=== PATIENT | male | born 1955 | race Caucasian/White ===

== ENCOUNTER 2023-01-29 13:55 | Observation (INO) | payer MEDICARE, OTHER, SELFPAY ==
[2023-01-29] VITALS (19 sets, daily range): BP systolic 140–188; BP diastolic 73–101; PULSE 52–73; RESP 15–27; TEMP 36.3–36.8; O2SAT 94–99; BMI 39.9
--- NOTE | 2023-01-29 13:58 | DI.RAD.S_ITS ---
PROCEDURE: XR CHEST 1V INDICATIONS: chest pain TECHNIQUE: One view of the chest was acquired. COMPARISON: None. FINDINGS: Surgical changes and devices: None. Lungs and pleura: Lungs are clear. No pleural effusions or pneumothorax. Mediastinum: Mediastinal contours appear normal. Heart size is normal. Bones and chest wall: No suspicious bony lesions. Overlying soft tissues appear unremarkable. IMPRESSION: No acute cardiopulmonary process. Dictated by: Akin Mathis M.D. on 01/29/2023 at 14:44 Approved by: Akin Mathis M.D. on 01/29/2023 at 14:44
--- NOTE | 2023-01-29 14:34 | ED_ITS ---
HPI - Chest Pain General Chief Complaint: Chest Pain Stated Complaint: Chest pain, High BP Time Seen by Provider: 01/29/23 14:28 Source: patient Mode of arrival: Ambulatory History of Present Illness HPI narrative: Patient here with . Complains substernal chest pressure heaviness off and on for the past week. Seen at another emergency department yesterday, [place], EKG showed right bundle-branch block. Patient was discharged according to discharge papers had elevated troponin however but 2 sets were done and was recommended to be admitted if they had a bridge manager. Last stress test more than 6 years ago. Patient has history of high blood pressure. Has had dyspnea and fatigue in the past few months. No active chest discomfort at this time. Related Data Home Medications Medication Instructions Recorded Confirmed hydrochlorothiazide 25 mg tablet 25 mg PO DAILY 11/11/18 01/29/23 losartan 100 mg tablet 100 mg PO DAILY 11/11/18 01/29/23 trazodone 100 mg tablet 100 mg PO DAILY PRN insomnia 10/18/20 01/29/23 Previous Rx's Medication Instructions Recorded amlodipine 5 mg tablet 5 mg PO DAILY #30 tabs 01/30/23 Allergies Allergy/AdvReac Type Severity Reaction Status Date / Time amoxicillin Allergy Intermediate Hives Verified 01/29/23 18:17 Review of Systems Review of Systems Narrative: GENERAL: negative chills, fatigue, malaise, fever, sweats. HEENT: negative sinus pain, ear pain, sore throat RESPIRATORY: Positive dyspnea, negative cough CARDIOVASCULAR: Positive chest pain, negative palpitations GASTROINTESTINAL: negative nausea, vomiting, abdominal pain : negative dysuria, frequency, hematuria MUSCULOSKELETAL: negative muscle or bony pain SKIN: negative rash, skin lesions NEUROLOGIC: negative weakness, numbness ROS Unobtainable: All systems reviewed & are unremarkable except as noted in HPI and below Patient History Medical History Hypertension Morbid obesity with BMI of 40.0-44.9, adult Obstructive sleep apnea of adult Primary insomnia Snoring Social History marital status: household members: spouse 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 history: retired after 37 years with [employer] 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 EYES: Pupils equal round ENT: Mucous membranes moist. NECK: Trachea midline. CARDIOVASCULAR: Regular rate and rhythm without murmurs RESPIRATORY: Clear to auscultation. Breath sounds equal bilaterally. No wheezes, rales, or rhonchi. GASTROINTESTINAL: Abdomen soft, non-tender EXTREMITIES: No gross deformities. BACK: No flank tenderness. NEURO: AOx4. SKIN: Warm and dry PSYCH: Not anxious, is cooperative Initial Vital Signs Initial Vital Signs: Vital Signs Temperature 97.4 F L 01/29/23 14:00 Pulse Rate 60 01/29/23 14:00 Respiratory Rate 19 01/29/23 14:00 Blood Pressure 184/92 H 01/29/23 14:00 Pulse Oximetry 99 01/29/23 14:00 Oxygen Delivery Method Room Air 01/29/23 14:00 Scores HEART Score Heart Score history: Moderately Suspicious Heart Score EKG: Non-Specific repolarization disturbance Heart Score Age: > or = 65 years old Heart Score risk factors: > 3 risk factors or hx of atherosclerotic disease Heart Score troponin: < or = to normal limit Heart Score Total: 6 Course Orders Ordered: Discontinued Medications Acetaminophen (Acetaminophen 325 Mg Tablet) 650 mg PO Q6H PRN PRN Reason: Fever/Mild Pain (1-3) Al Hydrox/Mg Hydrox/Simethicone (Mag Hydrox/Alum/Simeth 30 Ml Udc) 30 ml PO Q6HR PRN PRN Reason: Dyspepsia Aspirin (Aspirin 81 Mg Chew Tab) 324 mg PO NOW ONE Stop: 01/29/23 13:59 Last Admin: 01/29/23 14:51 Dose: Not Given Documented By: RLS Calcium Carbonate (Calcium Carbonate 500 Mg Tab) 1,000 mg PO Q4HR PRN PRN Reason: Dyspepsia Hydrochlorothiazide (Hydrochlorothiazide 25 Mg Tablet) 25 mg PO DAILY [facility] Last Admin: 01/30/23 13:55 Dose: 25 mg Documented By: CEW Dextrose/Sodium Chloride (Dextrose 5%-0.45% Ns) 1,000 mls @ 100 mls/hr IV CONT [facility] Last Admin: 01/29/23 18:51 Dose: 100 mls/hr Documented By: CLL Losartan Potassium (Losartan 50 Mg Tablet) 100 mg PO DAILY [facility] Last Admin: 01/30/23 13:54 Dose: 100 mg Documented By: AVA Naloxone HCl (Naloxone 0.4 Mg/Ml Vial) 0.2 mg IV Q2MIN PRN PRN Reason: Opiate Reversal Nitroglycerin (Nitroglycerin Oint 1 Inch/Gm Oint...G.) 1 inch TOP NOW ONE Stop: 01/29/23 14:35 Last Admin: 01/29/23 14:53 Dose: 1 inch Documented By: MARK Ondansetron HCl (Ondansetron 4 Mg Odt) 4 mg PO Q8HR PRN PRN Reason: Nausea And Vomiting Pantoprazole Sodium (Pantoprazole Dr 20 Mg Tablet) 20 mg PO 0600 [facility] Last Admin: 01/30/23 05:06 Dose: 20 mg Documented By: Vital Signs Vital signs: Vital Signs - 8 hr 01/29/23 14:00 01/29/23 14:53 01/29/23 14:10 Temperature 97.4 F L Pulse Rate 60 54 L 73 Respiratory Rate 19 27 H Blood Pressure 184/92 H 167/90 H Pulse Oximetry 99 Oxygen Delivery Method Room Air 01/29/23 14:17 01/29/23 14:17 01/29/23 14:30 Temperature Pulse Rate 58 L 59 L Respiratory Rate 20 23 Blood Pressure 164/92 H Pulse Oximetry 97 98 Oxygen Delivery Method 01/29/23 14:50 01/29/23 14:50 01/29/23 15:00 Temperature Pulse Rate 56 L Respiratory Rate 21 Blood Pressure 167/90 H 149/85 H Pulse Oximetry 98 Oxygen Delivery Method 01/29/23 15:00 01/29/23 15:30 01/29/23 15:30 Temperature Pulse Rate 52 L 54 L Respiratory Rate 15 20 Blood Pressure 161/81 H Pulse Oximetry 97 98 Oxygen Delivery Method Nasal Cannula 01/29/23 16:00 01/29/23 16:01 01/29/23 16:01 Temperature Pulse Rate 52 L 54 L Respiratory Rate 19 18 Blood Pressure 140/73 Pulse Oximetry 97 96 Oxygen Delivery Method 01/29/23 16:30 01/29/23 16:32 01/29/23 16:32 Temperature Pulse Rate 56 L 57 L Respiratory Rate 22 21 Blood Pressure 188/101 H Pulse Oximetry 96 Oxygen Delivery Method MDM - Chest Pain Lab Data 01/29/23 18:25 01/29/23 18:25 Labs: Lab Results 01/29/23 01/29/23 01/29/23 Range/Units 14:30 14:30 14:30 WBC 7.5 (4.5-11.0) X10^3/uL RBC 4.78 (4.5-5.9) X10^6/uL Hgb 14.5 (13.5-17.5) g/dL Hct 42.1 (41-53) % MCV 88.1 (80-100) fL MCH 30.2 (26-34) PG MCHC 34.3 (30-36) % RDW 13.4 (11.6-14.8) % Plt Count 145 L (150-400) X10^3/uL Neut % (Auto) 66.9 (50-75) % Lymph % (Auto) 22.5 L (25-40) % [place] % (Auto) 8.0 (3-14) % Eos % (Auto) 1.8 L (2-4) % Baso % (Auto) 0.8 (0-2) % Neut # (Auto) 5000 (5361-7081) /uL Lymph # (Auto) 1700 (3469-6921) /uL [place] # (Auto) 600 (0-900) /uL Eos # (Auto) 100 (0-450) /uL Baso # (Auto) 100 (0-100) /uL PT 12.3 (10.1-12.7) SECONDS INR 1.1 (0.9-1.3) APTT 33 (26-36) SECONDS Sodium 139 (137-145) mmol/L Potassium 3.7 (3.4-5.1) mmol/L Chloride 105 (98-107) mmol/L Carbon Dioxide 30 (22-32) mmol/L BUN 15 (9-20) mg/dL Creatinine 0.73 (0.66-1.25) mg/dL Estimated GFR > 60 (>60) mL/min BUN/Creatinine Ratio 20.5 (6-22) Glucose 92 (80-110) mg/dL Calcium 9.3 (8.4-10.2) mg/dL Magnesium 2.0 (1.6-2.3) mg/dL Total Bilirubin 1.4 H (0.2-1.3) mg/dL AST 34 (17-59) IU/L ALT 34 (<50) IU/L Alkaline Phosphatase 75 (38-126) U/L Total Creatine Kinase 112 (55-170) U/L CK-MB (CK-2) 1.44 (<2.37) ng/mL CK-MB (CK-2) Rel Index 1.3 L (1.5-5.0) % Troponin I 0.017 (0.01-0.034) ng/mL Total Protein 7.0 (6.3-8.2) g/dL Albumin 4.0 (3.5-5.0) g/dL Globulin 3.0 (1.7-4.1) g/dL Albumin/Globulin Ratio 1.3 (1.0-2.8) Lipase 52 (23-300) U/L SARS-CoV-2 (PCR) (Negative) 01/29/23 01/29/23 Range/Units 15:20 16:30 WBC (4.5-11.0) X10^3/uL RBC (4.5-5.9) X10^6/uL Hgb (13.5-17.5) g/dL Hct (41-53) % MCV (80-100) fL MCH (26-34) PG MCHC (30-36) % RDW (11.6-14.8) % Plt Count (150-400) X10^3/uL Neut % (Auto) (50-75) % Lymph % (Auto) (25-40) % [place] % (Auto) (3-14) % Eos % (Auto) (2-4) % Baso % (Auto) (0-2) % Neut # (Auto) (4361-9024) /uL Lymph # (Auto) (7048-4573) /uL [place] # (Auto) (0-900) /uL Eos # (Auto) (0-450) /uL Baso # (Auto) (0-100) /uL PT (10.1-12.7) SECONDS INR (0.9-1.3) APTT (26-36) SECONDS Sodium (137-145) mmol/L Potassium (3.4-5.1) mmol/L Chloride (98-107) mmol/L Carbon Dioxide (22-32) mmol/L BUN (9-20) mg/dL Creatinine (0.66-1.25) mg/dL Estimated GFR (>60) mL/min BUN/Creatinine Ratio (6-22) Glucose (80-110) mg/dL Calcium (8.4-10.2) mg/dL Magnesium (1.6-2.3) mg/dL Total Bilirubin (0.2-1.3) mg/dL AST (17-59) IU/L ALT (<50) IU/L Alkaline Phosphatase (38-126) U/L Total Creatine Kinase (55-170) U/L CK-MB (CK-2) (<2.37) ng/mL CK-MB (CK-2) Rel Index (1.5-5.0) % Troponin I 0.014 (0.01-0.034) ng/mL Total Protein (6.3-8.2) g/dL Albumin (3.5-5.0) g/dL Globulin (1.7-4.1) g/dL Albumin/Globulin Ratio (1.0-2.8) Lipase (23-300) U/L SARS-CoV-2 (PCR) Negative (Negative) Imaging Data Chest x-ray: Radiologist's Impression: PROCEDURE:? XR CHEST 1V ? INDICATIONS:? chest pain ? TECHNIQUE:? One view of the chest was acquired.? ? COMPARISON:? None. ? FINDINGS:? ? Surgical changes and devices:? None.? ? Lungs and pleura:? Lungs are clear.? No pleural effusions or pneumothorax.? ? Mediastinum:? Mediastinal contours appear normal.? Heart size is normal.? ? Bones and chest wall:? No suspicious bony lesions.? Overlying soft tissues a ppear unremarkable.? ? IMPRESSION:? No acute cardiopulmonary process. ? ? ? Dictated by: Akin Mathis M.D. on 01/29/2023 at 14:44 ? ? Approved by: Akin Mathis M.D. on 01/29/2023 at 14:44 ? MDM Narrative Medical decision making narrative: Patient here with . Complains substernal chest pressure heaviness off and on for the past week. Seen at another emergency department yesterday, [place], EKG showed right bundle-branch block. Patient was discharged according to discharge papers had elevated troponin however but 2 sets were done and was recommended to be admitted if they had a bridge manager. Last stress test more than 6 years ago. Patient has history of high blood pressure. Has had dyspnea and fatigue in the past few months. No active chest discomfort at this time. After history and exam CBC CMP troponin EKG chest x-ray nitro paste aspirin ordered [facility] CC: Chest pain Complicating co-morbidities: Family history of heart disease/hypertension Data collected from: Patient and Medical records reviewed: No recent visits here for chest pain Differential considered: Includes but not limited to STEMI non-STEMI stable angina unstable angina pulmonary embolism Exam documented above, pertinent findings include: Nontender chest Lab Test results independently reviewed as above. Pertinent findings: WBCs 7.5 hemoglobin 14, troponin 0.017, repeat troponin 0.014 Independently reviewed EKG as above normal sinus rhythm right bundle-branch block, rate [address] elevation or depression, repeat EKG at 1626 sinus bradycardia rate 55 right bundle-branch block Imaging studies independently reviewed: no acute process Consultations: Spoke with Dr. Garcia, hospitalist, will admit Treatments: Aspirin nitro paste Re-evaluations: 5:00 p.m.. Reviewed results with patient. At this time reassuring. 167/94 blood pressure has improved. Chest pain has improved. Discussion: Appropriate for admission for stress test. Patient has had worsening chest pressure/episodic chest discomfort for the past 2 days. Diagnosis: Chest pain Discharge Plan Departure Patient Disposition: Admitted as Observation Clinical Impression: Chest pain Admit Date/Time: 01/29/23 17:17 Admit Provider: Orlando Garcia
[2023-01-29 14:40] LABS: Add Manual Diff / Slide Review NO; Basophils Absolute Auto 100 /uL (0-100); Basophils Percent Auto 0.8 % (0-2); Eosinophils Absolute Auto 100 /uL (0-450); Eosinophils Percent Auto 1.8 % (2-4); Hematocrit 42.1 % (41-53); Hemoglobin 14.5 g/dL (13.5-17.5); Lymphocytes Absolute Auto 1700 /uL (1100-4500); Lymphocytes Percent Auto 22.5 % (25-40); Mean Corpuscular HGB Conc 34.3 % (30-36); Mean Corpuscular Hemoglobin 30.2 PG (26-34); Mean Corpuscular Volume 88.1 fL (80-100); Monocytes Absolute Auto 600 /uL (0-900); Neutrophils Absolute Auto 5000 /uL (1500-7000); Neutrophils Percent Auto 66.9 % (50-75); Platelet Count 145 X10^3/uL (150-400); Red Blood Cell Count 4.78 X10^6/uL (4.5-5.9); Red Cell Distribution Width 13.4 % (11.6-14.8); White Blood Cell Count 7.5 X10^3/uL (4.5-11.0)
[2023-01-29 14:43] LABS: INR 1.1 (0.9-1.3); Prothrombin Time 12.3 SECONDS (10.1-12.7)
[2023-01-29 14:46] LABS: PTT Partial Thromboplastin Tim 33 SECONDS (26-36)
[2023-01-29 14:50] LABS: Alanine Aminotransferase 34 IU/L (<50); Albumin Globulin Ratio 1.3 (1.0-2.8); Alkaline Phosphatase 75 U/L (38-126); Aspartate Aminotransferase 34 IU/L (17-59); BUN Creatinine Ratio 20.5 (6-22); Bilirubin Total 1.4 mg/dL (0.2-1.3); Blood Urea Nitrogen 15 mg/dL (9-20); Calcium 9.3 mg/dL (8.4-10.2); Carbon Dioxide 30 mmol/L (22-32); Chloride 105 mmol/L (98-107); Creatine Kinase 112 U/L (55-170); Estimated Glomerular Filt Rate > 60 mL/min (>60); Glucose 92 mg/dL (80-110); HEMOLYSIS < 15 (0-50); Lipase 52 U/L (23-300); Potassium 3.7 mmol/L (3.4-5.1); Sodium 139 mmol/L (137-145)
[2023-01-29] MEDS: NITROGLYCERIN OINT 1 INCH/GM OINT...G. TOP (14:53)
[2023-01-29 15:02] LABS: Troponin I 0.017 ng/mL (0.01-0.034)
[2023-01-29 15:06] LABS: CKMB % Relative Index 1.3 % (1.5-5.0); Creatine Kinase MB 1.44 ng/mL (<2.37)
[2023-01-29 15:44] LABS: COVID19 -Nasal RAPID Negative (Negative)
[2023-01-29 17:00] LABS: Troponin I 0.014 ng/mL (0.01-0.034)
--- NOTE | 2023-01-29 17:24 | DI.NM.S_ITS ---
PROCEDURE: NM EXERCISE TREADMILL NON NUC COMPARISON: None INDICATIONS: Chest pain FINDINGS: Rest ECG sinus rhythm, RBBB. Resting blood pressure 220/100. James protocol 5:04, maximum heart rate 134 bpm (87% peak predicted), maximum blood pressure 230/98, 7.0 METS, TALAT +30%. Stress ECG sinus tachycardia, RBBB, artifact, no obvious ST changes, frequent PVCs. The patient complained of mild substernal chest discomfort. IMPRESSION: Intermediate risk test. No obvious exercise-induced ST segment changes however limited due to artifact and baseline RBBB. Frequent PVCs noted throughout exercise. Uncontrolled blood pressure. Accelerated heart rate response. Reduced exercise capacity. Consider pharmacologic nuclear stress testing to further assess once blood pressure is controlled. Dictated by: Aarti Perez D.O. on 01/30/2023 at 12:38 Approved by: Aarti Perez D.O. on 01/30/2023 at 12:50
--- NOTE | 2023-01-29 17:26 | P.HP_ITS ---
History of Present Illness History of Present Illness Date Patient Seen: 01/29/23 Time Patient Seen: 19:08 Chief complaint: Chest pain, High BP Narrative: The patient is a 67-year-old male with history of hypertension who presents with chest pressure. Pressure intermittently for the last 3 days. This has not necessarily been with exertion are in the mid chest without radiation to he has had some clamminess with this but denies any associated nausea, diaphoresis, or dyspnea. The patient has no history of exertional symptoms of dyspnea or chest pain. He has been taking blood pressure medication denies any issues with blood pressure control. He does not smoke cigarettes and denies a family for [place]. emergency department he would a nonacute electrocardiogram and negative troponin. The patient notes he was seen at would be Emergency Department evening and left at 4:00 a.m. with a stent because of recurrent symptoms this late morning while at work he elected to come to this hospital as he knew that there was more sophisticated cardiology testing available. He denies pedal edema, orthopnea she denies recent URI symptoms including rhinorrhea, or cough. 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 Meds Home Medications and Allergies Home Medications Medication Instructions Recorded Confirmed Type hydrochlorothiazide 25 mg tablet 25 mg PO DAILY 11/11/18 01/29/23 History losartan 100 mg tablet 100 mg PO DAILY 11/11/18 01/29/23 History trazodone 100 mg tablet 100 mg PO DAILY PRN insomnia 10/18/20 01/29/23 History Allergies Allergy/AdvReac Type Severity Reaction Status Date / Time amoxicillin Allergy Intermediate Hives Verified 01/29/23 18:17 Review of Systems Review of Systems Narrative: He denies recent nausea, vomiting or diarrhea. No pain or dyspeptic symptoms. All else reviewed and otherwise negative. Exam Vital Signs (past 8 hours): - 01/29/23 14:00 01/29/23 14:53 01/29/23 14:10 Temperature 97.4 F L Pulse Rate 60 54 L 73 Respiratory Rate 19 27 H Blood Pressure 184/92 H 167/90 H Pulse Oximetry 99 Oxygen Delivery Method Room Air 01/29/23 14:17 01/29/23 14:17 01/29/23 14:30 Temperature Pulse Rate 58 L 59 L Respiratory Rate 20 23 Blood Pressure 164/92 H Pulse Oximetry 97 98 Oxygen Delivery Method 01/29/23 14:50 01/29/23 14:50 01/29/23 15:00 Temperature Pulse Rate 56 L Respiratory Rate 21 Blood Pressure 167/90 H 149/85 H Pulse Oximetry 98 Oxygen Delivery Method 01/29/23 15:00 01/29/23 15:30 01/29/23 15:30 Temperature Pulse Rate 52 L 54 L Respiratory Rate 15 20 Blood Pressure 161/81 H Pulse Oximetry 97 98 Oxygen Delivery Method Nasal Cannula 01/29/23 16:00 01/29/23 16:01 01/29/23 16:01 Temperature Pulse Rate 52 L 54 L Respiratory Rate 19 18 Blood Pressure 140/73 Pulse Oximetry 97 96 Oxygen Delivery Method 01/29/23 16:30 01/29/23 16:32 01/29/23 16:32 Temperature Pulse Rate 56 L 57 L Respiratory Rate 22 21 Blood Pressure 188/101 H Pulse Oximetry 96 Oxygen Delivery Method 01/29/23 17:00 01/29/23 17:01 01/29/23 17:01 Temperature Pulse Rate 56 L 56 L Respiratory Rate 20 22 Blood Pressure 167/94 H Pulse Oximetry 95 94 Oxygen Delivery Method Room Air Oxygen Delivery Method Room Air Narrative Exam Narrative: He is alert and oriented x3, relatively calm. He has normal judgment and regular speech. Head is atraumatic. Eyes are notable for symmetric pupils and anicteric sclera. Neck is supple with normal range of motion, normal thyroid. No adenopathy. Lungs are clear to auscultation with normal rate and effort. Heart is regular in rate and rhythm, with out murmur. Abdomen is soft, nondistended. No focal tenderness, guarding or rebound. Extremities are free of edema with good pedal pulses. Skin is free of rash, or lesions. Muscles with normal tone, joints are negative for deformity. Neurologically patient has normal cranial nerves and normal motor strength in all extremities. Objective ECG Impression: Sinus rhythm without acute changes. Imaging Chest x-ray: My impression: No acute changes noted. Labs 01/29/23 18:25 01/29/23 18:25 Labs: Laboratory Results - last 24 hr 01/29/23 01/29/23 01/29/23 14:30 14:30 14:30 WBC 7.5 RBC 4.78 Hgb 14.5 Hct 42.1 MCV 88.1 MCH 30.2 MCHC 34.3 RDW 13.4 Plt Count 145 L Neut % (Auto) 66.9 Lymph % (Auto) 22.5 L [place] % (Auto) 8.0 Eos % (Auto) 1.8 L Baso % (Auto) 0.8 Neut # (Auto) 5000 Lymph # (Auto) 1700 [place] # (Auto) 600 Eos # (Auto) 100 Baso # (Auto) 100 PT 12.3 INR 1.1 APTT 33 Sodium 139 Potassium 3.7 Chloride 105 Carbon Dioxide 30 BUN 15 Creatinine 0.73 Estimated GFR > 60 BUN/Creatinine Ratio 20.5 Glucose 92 Calcium 9.3 Magnesium 2.0 Total Bilirubin 1.4 H AST 34 ALT 34 Alkaline Phosphatase 75 Total Creatine Kinase 112 CK-MB (CK-2) 1.44 CK-MB (CK-2) Rel Index 1.3 L Troponin I 0.017 Total Protein 7.0 Albumin 4.0 Globulin 3.0 Albumin/Globulin Ratio 1.3 Lipase 52 SARS-CoV-2 (PCR) 01/29/23 01/29/23 15:20 16:30 WBC RBC Hgb Hct MCV MCH MCHC RDW Plt Count Neut % (Auto) Lymph % (Auto) [place] % (Auto) Eos % (Auto) Baso % (Auto) Neut # (Auto) Lymph # (Auto) [place] # (Auto) Eos # (Auto) Baso # (Auto) PT INR APTT Sodium Potassium Chloride Carbon Dioxide BUN Creatinine Estimated GFR BUN/Creatinine Ratio Glucose Calcium Magnesium Total Bilirubin AST ALT Alkaline Phosphatase Total Creatine Kinase CK-MB (CK-2) CK-MB (CK-2) Rel Index Troponin I 0.014 Total Protein Albumin Globulin Albumin/Globulin Ratio Lipase SARS-CoV-2 (PCR) Negative Assessment & Plan Assessment & Plan narrative: 1. Atypical Chest pain, present on admission and active. - the plan is serial troponins, NPO midnight and stress test in the morning. 2. Essential hypertension, present on admission and active. - Resume usual medications including hydrochlorothiazide and losartan. Patient is full resuscitation is observation patient with expected length of stay of 1 midnight. Time Spent With Patient Critical Care time: 35 minutes spent
--- NOTE | 2023-01-29 18:37 | PC.NURSE ---
Patient admitted for chest pain, tele is placed. His daughter is in the room and he denies chest pain at this time.
[2023-01-29 18:40] LABS: Add Manual Diff / Slide Review NO; Basophils Absolute Auto 0 /uL (0-100); Basophils Percent Auto 0.7 % (0-2); Eosinophils Absolute Auto 100 /uL (0-450); Eosinophils Percent Auto 1.9 % (2-4); Hematocrit 41.6 % (41-53); Hemoglobin 14.3 g/dL (13.5-17.5); Lymphocytes Absolute Auto 1700 /uL (1100-4500); Lymphocytes Percent Auto 23.1 % (25-40); Mean Corpuscular HGB Conc 34.4 % (30-36); Mean Corpuscular Hemoglobin 30.1 PG (26-34); Mean Corpuscular Volume 87.4 fL (80-100); Monocytes Absolute Auto 500 /uL (0-900); Monocytes Percent Auto 7.1 % (3-14); Neutrophils Absolute Auto 5000 /uL (1500-7000); Neutrophils Percent Auto 67.2 % (50-75); Platelet Count 144 X10^3/uL (150-400); Red Blood Cell Count 4.76 X10^6/uL (4.5-5.9); Red Cell Distribution Width 13.8 % (11.6-14.8); White Blood Cell Count 7.4 X10^3/uL (4.5-11.0)
[2023-01-29 18:48] LABS: BUN Creatinine Ratio 23.8 (6-22); Blood Urea Nitrogen 15 mg/dL (9-20); Calcium 9.1 mg/dL (8.4-10.2); Carbon Dioxide 29 mmol/L (22-32); Chloride 104 mmol/L (98-107); Estimated Glomerular Filt Rate > 60 mL/min (>60); Glucose 103 mg/dL (80-110); HEMOLYSIS < 15 (0-50); Potassium 3.6 mmol/L (3.4-5.1); Sodium 139 mmol/L (137-145)
[2023-01-29] MEDS: DEXTROSE 5%-0.45% NS 1,000 ML 100 ML IV (18:51)
[2023-01-29 19:01] LABS: Troponin I 0.019 ng/mL (0.01-0.034)
[2023-01-30 02:00] VITALS: BP 120/71; PULSE 50; O2SAT 98
[2023-01-30] MEDS: PANTOPRAZOLE DR 20 MG TABLET PO (05:06)
[2023-01-30 06:00] VITALS: BP 136/82; PULSE 50; RESP 15; TEMP 35.9; O2SAT 97
[2023-01-30 09:53] VITALS: BP 154/87; PULSE 54; RESP 16; TEMP 36.1; O2SAT 98
--- NOTE | 2023-01-30 12:04 | CM.DANOTE ---
Discharge Planning/Care Management CM Discharge Assessment Start: 01/30/23 11:50 Freq: Status: Active Protocol: Document 01/30/23 11:50 KATHRINE (Rec: 01/30/23 12:04 KATHRINE [id number]) Discharge Planning Assessment Assigned Agricultural Lender KASSIDY Whitmore DPOA/Assigned Designee Name Aria De La Rosa Contact Information [phone] Advance Directives? 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 Yes Barriers to Discharge No Comment 67-year-old male with history of hypertension who presents with chest pressure. Dr Garcia anticipates discharge home w/spouse after stress test Patient back to functional baseline today, indp in room. No needs identified from this CM team. Close outpatient follow up recommended Discharge Plan Home Transportation Arrangement Family Referrals Initiated None needed
[2023-01-30] MEDS: LOSARTAN 50 MG TABLET 100 MG PO (13:54)
[2023-01-30] MEDS: hydroCHLOROthiazide 25 MG TABLET PO (13:55)
--- NOTE | 2023-01-30 14:28 | P.DS_ITS ---
History of Present Illness History of Present Illness Date Patient Seen: 01/29/23 Time Patient Seen: 19:08 Chief complaint: Chest pain, High BP Narrative: The patient is a 67-year-old male with history of hypertension who presents with chest pressure. Pressure intermittently for the last 3 days. This has not necessarily been with exertion are in the mid chest without radiation to he has had some clamminess with this but denies any associated nausea, diaphoresis, or dyspnea. The patient has no history of exertional symptoms of dyspnea or chest pain. He has been taking blood pressure medication denies any issues with blood pressure control. He does not smoke cigarettes and denies a family for HI. emergency department he would a nonacute electrocardiogram and negative troponin. The patient notes he was seen at would be Emergency Department evening and left at 4:00 a.m. with a stent because of recurrent symptoms this late morning while at work he elected to come to this hospital as he knew that there was more sophisticated cardiology testing available. He denies pedal edema, orthopnea she denies recent URI symptoms including rhinorrhea, or cough. Discharge Providers Provider Date of admission: 01/29/23 17:17 Discharge Date: 01/30/23 Primary care physician: Sumanth Pham MD Consults: None Discharge provider: Orlando Garcia MD Summary Hospital Course Discharge Diagnosis: Atypical chest pain with intermediate exercise stress test, present on admission and improved. Uncontrolled blood pressure, present on admission and active Obesity class 2, present on admission and active Hospital Course: The patient was admitted with atypical chest acute electrocardiogram. Trended troponins were negative. The patient was not a candidate for stress test given BMI so we elected to do a exercise discussion with Cardiology. S was read as intermediate risk. This was based on patient's difficulty with exercise as well as PVCs and uncontrolled blood pressure. There was an assessment of reduced size capacity. There are no obvious ST were to consider pharmacologic nuclear stress test after blood pressure is better controlled. Discussed blood pressure control and weight loss with the patient. He will be next week and in the meantime we will add amlodipine 5 mg daily to his regimen. Status at Discharge Cognitive/behavioral status at discharge: oriented Functional status at discharge: independent ambulation Overall status at discharge: patient is back to baseline Time Spent with Patient Time spent: Greater than 30 minutes Exam Vital Signs (past 8 hours): - 01/30/23 09:53 Temperature 97.0 F L Pulse Rate 54 L Respiratory Rate 16 Blood Pressure 154/87 H Pulse Oximetry 98 Oxygen Flow Rate 0 Oxygen Delivery Method Room Air Oxygen Flow Rate 0 Narrative Exam Narrative: He is alert and oriented x3, relatively calm. He has normal judgment and regular speech. Head is atraumatic. Eyes are notable for symmetric pupils and anicteric sclera. Neck is supple with normal range of motion, normal thyroid. No adenopathy. Lungs are clear to auscultation with normal rate and effort. Heart is regular in rate and rhythm, with out murmur. Abdomen is soft, nondistended. No focal tenderness, guarding or rebound. Extremities are free of edema with good pedal pulses. Skin is free of rash, or lesions. Muscles with normal tone, joints are negative for deformity. Neurologically patient has normal cranial nerves and normal motor strength in all extremities. Objective ECG Impression: Normal sinus rhythm no acute changes. Imaging Chest x-ray: My impression: No acute changes. Radiologist's impression: No acute changes Labs 01/29/23 18:25 01/29/23 18:25 Labs: Laboratory Results - last 24 hr 01/29/23 01/29/23 01/29/23 14:30 14:30 14:30 WBC 7.5 RBC 4.78 Hgb 14.5 Hct 42.1 MCV 88.1 MCH 30.2 MCHC 34.3 RDW 13.4 Plt Count 145 L Neut % (Auto) 66.9 Lymph % (Auto) 22.5 L [place] % (Auto) 8.0 Eos % (Auto) 1.8 L Baso % (Auto) 0.8 Neut # (Auto) 5000 Lymph # (Auto) 1700 [place] # (Auto) 600 Eos # (Auto) 100 Baso # (Auto) 100 PT 12.3 INR 1.1 APTT 33 Sodium 139 Potassium 3.7 Chloride 105 Carbon Dioxide 30 BUN 15 Creatinine 0.73 Estimated GFR > 60 BUN/Creatinine Ratio 20.5 Glucose 92 Calcium 9.3 Magnesium 2.0 Total Bilirubin 1.4 H AST 34 ALT 34 Alkaline Phosphatase 75 Total Creatine Kinase 112 CK-MB (CK-2) 1.44 CK-MB (CK-2) Rel Index 1.3 L Troponin I 0.017 Total Protein 7.0 Albumin 4.0 Globulin 3.0 Albumin/Globulin Ratio 1.3 Lipase 52 SARS-CoV-2 (PCR) 01/29/23 01/29/23 01/29/23 15:20 16:30 18:25 WBC 7.4 RBC 4.76 Hgb 14.3 Hct 41.6 MCV 87.4 MCH 30.1 MCHC 34.4 RDW 13.8 Plt Count 144 L Neut % (Auto) 67.2 Lymph % (Auto) 23.1 L [place] % (Auto) 7.1 Eos % (Auto) 1.9 L Baso % (Auto) 0.7 Neut # (Auto) 5000 Lymph # (Auto) 1700 [place] # (Auto) 500 Eos # (Auto) 100 Baso # (Auto) 0 PT INR APTT Sodium Potassium Chloride Carbon Dioxide BUN Creatinine Estimated GFR BUN/Creatinine Ratio Glucose Calcium Magnesium Total Bilirubin AST ALT Alkaline Phosphatase Total Creatine Kinase CK-MB (CK-2) CK-MB (CK-2) Rel Index Troponin I 0.014 Total Protein Albumin Globulin Albumin/Globulin Ratio Lipase SARS-CoV-2 (PCR) Negative 01/29/23 01/29/23 18:25 18:25 WBC RBC Hgb Hct MCV MCH MCHC RDW Plt Count Neut % (Auto) Lymph % (Auto) [place] % (Auto) Eos % (Auto) Baso % (Auto) Neut # (Auto) Lymph # (Auto) [place] # (Auto) Eos # (Auto) Baso # (Auto) PT INR APTT Sodium 139 Potassium 3.6 Chloride 104 Carbon Dioxide 29 BUN 15 Creatinine 0.63 L Estimated GFR > 60 BUN/Creatinine Ratio 23.8 H Glucose 103 Calcium 9.1 Magnesium Total Bilirubin AST ALT Alkaline Phosphatase Total Creatine Kinase CK-MB (CK-2) CK-MB (CK-2) Rel Index Troponin I 0.019 Total Protein Albumin Globulin Albumin/Globulin Ratio Lipase SARS-CoV-2 (PCR) [facility] Medical History Hypertension Morbid obesity with BMI of 40.0-44.9, adult Obstructive sleep apnea of adult Primary insomnia Snoring Social History marital status: household members: spouse 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 history: retired after 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 with [employer] 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 Smoking Status: Never smoker alcohol intake: never substance use type: does not use Type(s) of exercise: regular exercise Discharge Assessment & Plan Assessment and Plan Assessment: Difficult chest pain with intermediate risk exercise stress test Hypertension, poorly controlled Morbid obesity with BMI of 40.0-44.9, adult Obstructive sleep apnea of adult Primary insomnia Snoring Plan of Treatment: Discharge home, follow up with his PCP next week Discharge Plan Discharge Plan Patient Disposition: Home Provider Discharge Comment: Dr Pham (PCP) follow up next week Discharge orders & Medications Prescriptions: New amlodipine 5 mg tablet 5 mg PO DAILY Qty: 30 5RF Continued losartan 100 mg tablet 100 mg PO DAILY hydrochlorothiazide 25 mg tablet 25 mg PO DAILY trazodone 100 mg tablet 100 mg PO DAILY PRN (Reason: insomnia) Patient Comments: uses infrequently Medication counseling provided by Pharmacist: No Follow up/Referrals: Sumanth Pham MD [Primary Care Provider] - Discharge Health Status Multidrug resistant organism: No MDRO Diet/Activity/Treatments Diet: Diet as Tolerated Visit Report/Discharge Packet Stand Alone Forms: Patient Portal/API, Stroke Signs & Symptoms Discharge Data Primary Care Provider: Sumanth Pham Attending Provider: Orlando Garcia
--- NOTE | 2023-01-30 17:03 | PC.NURSE ---
Discharge: Pt feels ready to d/c to home. Tele on, no c/p. Feels ready to go home. Tolerates diet w/out problems. Vds w/out diff. Treadmill completed and MD came and saw him. Given test results, discharge instructions. D/c packet given. Seen by pharmacist for medication teaching. Questions answered. Pt d/c to home via auto w/spouse.
== END 2023-01-30 16:15 | disposition home or self-care (01) ==
LOC: ED 14:42 → AC 17:18
PROVIDERS: Admitting Provider Hospitalist; Emergency Provider Emergency Medicine; Family Provider Family Medicine; PCP Family Medicine; Referring Provider Emergency Medicine; Visit Provider Hospitalist
DX: R07.89 Other chest pain (principal); I10 Essential (primary) hypertension; E66.01 Morbid (severe) obesity due to excess calories; Z68.41 Body mass index [BMI] 40.0-44.9, adult; G47.33 Obstructive sleep apnea (adult) (pediatric); Z20.822 Contact with and (suspected) exposure to COVID-19
CPT/HCPCS: 36415; 71045; 80048; 80053; 82550; 82553; 83690; 83735; 84484; 85025; 85610; 85730; 87635; 93005; 93010; 93017; 99284; 99285; C9803; G0378

== ENCOUNTER 2023-06-19 10:16 | Emergency (ER) | payer MEDICARE, OTHER, SELFPAY ==
[2023-01-29 17:39] VITALS: BMI 39.9
[2023-06-19] VITALS (38 sets, daily range): BP systolic 107–132; BP diastolic 53–72; PULSE 56–80; RESP 10–22; TEMP 37.1–37.4; O2SAT 95–98; BMI 39.9
[2023-06-19 10:56] LABS: Add Manual Diff / Slide Review NO; Basophils Absolute Auto 100 /uL (0-100); Basophils Percent Auto 0.4 % (0-2); Eosinophils Absolute Auto 100 /uL (0-450); Eosinophils Percent Auto 0.6 % (2-4); Lymphocytes Absolute Auto 1900 /uL (1100-4500); Lymphocytes Percent Auto 11.2 % (25-40); Mean Corpuscular HGB Conc 33.3 % (30-36); Mean Corpuscular Hemoglobin 29.8 PG (26-34); Mean Corpuscular Volume 89.4 fL (80-100); Monocytes Absolute Auto 1400 /uL (0-900); Monocytes Percent Auto 8.6 % (3-14); Neutrophils Absolute Auto 13300 /uL (1500-7000); Neutrophils Percent Auto 79.2 % (50-75); Platelet Count 271 X10^3/uL (150-400); Red Blood Cell Count 2.35 X10^6/uL (4.5-5.9); Red Cell Distribution Width 14.5 % (11.6-14.8); White Blood Cell Count 16.7 X10^3/uL (4.5-11.0)
[2023-06-19 11:02] LABS: INR 1.4 (0.9-1.3)
[2023-06-19 11:05] LABS: PTT Partial Thromboplastin Tim 26 SECONDS (26-36)
--- NOTE | 2023-06-19 11:06 | ED.GIBLEED ---
HPI - GI Bleed General Chief complaint: GI Bleed Stated complaint: poss GI blled Time Seen by Provider: 06/19/23 10:19 Source: patient and family Mode of arrival: Ambulatory Limitations: no limitations History of Present Illness HPI Narrative: 68-year-old male who just under 2 weeks ago underwent an elective coronary artery bypass graft. There was some complications afterwards. The patient did have an episode of atrial fibrillation. He also needed chest tube. He was discharged home with the beginning of this week. He is on Eliquis. He is not taken his Eliquis since yesterday morning. Since he was discharged home he has had progressive worsening weakness, dyspnea on exertion. He is also had black-colored stools. Has also had decreased appetite. Some nausea but no vomiting. Related Data Home Medications Medication Instructions Recorded Confirmed losartan 100 mg tablet 100 mg PO DAILY 11/11/18 06/19/23 trazodone 100 mg tablet 100 mg PO DAILY PRN insomnia 10/18/20 06/19/23 acetaminophen 500 mg tablet 1,000 mg PO Q6H PRN Pain, Moderate 06/19/23 06/19/23 amiodarone 400 mg tablet 400 mg PO BID 06/19/23 06/19/23 apixaban 5 mg tablet (Eliquis) 5 mg PO BID 06/19/23 06/19/23 ascorbic acid (vitamin C) 100 mg 100 mg PO DAILY 06/19/23 06/19/23 tablet aspirin 81 mg tablet,delayed 81 mg PO DAILY 06/19/23 06/19/23 release atorvastatin 80 mg tablet 80 mg PO QPM 06/19/23 06/19/23 baclofen 10 mg tablet 10 mg PO 3XD PRN muscle spasm 06/19/23 06/19/23 cholecalciferol (vitamin D3) 25 1,000 unit PO DAILY 06/19/23 06/19/23 mcg (1,000 unit) tablet furosemide 20 mg tablet 20 mg PO DAILY 06/19/23 06/19/23 isosorbide mononitrate 30 mg 30 mg PO DAILY 06/19/23 06/19/23 tablet,extended release 24 hr metoprolol succinate 25 mg 25 mg PO DAILY 06/19/23 06/19/23 tablet,extended release 24 hr ondansetron 4 mg disintegrating 4 mg PO Q8H PRN nausea/vomiting 06/19/23 06/19/23 tablet potassium chloride 20 mEq 20 meq PO BID 06/19/23 06/19/23 tablet,extended release(part/cryst) scopolamine base 1 mg over 3 days 1 patch topical Q3D PRN Nausea And 06/19/23 06/19/23 transdermal patch Vomiting Previous Rx's Medication Instructions Recorded amlodipine 5 mg tablet 5 mg PO DAILY #30 tabs 01/30/23 Allergies Allergy/AdvReac Type Severity Reaction Status Date / Time amoxicillin Allergy Intermediate Hives Verified 01/29/23 18:17 Review of Systems Review of Systems ROS Unobtainable: All systems reviewed & are unremarkable except as noted in HPI and below Patient History Medical History (Updated 06/19/23 @ 12:38 by Del Mcneil DO) Hypertension Morbid obesity with BMI of 40.0-44.9, adult Obstructive sleep apnea of adult Primary insomnia Snoring Social History marital status: household members: spouse 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 history: 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 Smoking Status: Never smoker alcohol intake: never substance use type: does not use Type(s) of exercise: regular exercise Smoking Status: Never smoker Substance Use Type: does not use Exam Initial Vital Signs Initial Vital Signs: Vital Signs Pulse Rate 68 06/19/23 10:24 Blood Pressure 125/60 06/19/23 10:24 Pulse Oximetry 98 06/19/23 10:24 HENMT Head: normal to inspection and normocephalic Chest Other: Surgical incision appears to be healing well Resp Effort & Inspection: normal respiratory effort Auscultation: clear to auscultation bilaterally Cardio Rate: regular rate Rhythm: regular rhythm GI Inspection: normal to inspection and non-distended Neuro General: patient alert, patient awake, patient oriented x3 and moves all extremities Extrem General: normal to inspection Course Orders Ordered: ED Orders 06/19/23 10:27 EKG-12 Lead Stat 06/19/23 10:45 Complete Blood Count AUTO DIFF Stat Comprehensive Metabolic Panel Stat Lipase Stat PTT Partial Thromboplastin Everardo Stat Packed Cells Stat Prothrombin Time INR Stat Type and Screen Stat Discontinued Medications Pantoprazole Sodium (Pantoprazole 40 Mg Vial) 40 mg IV NOW ONE Stop: 06/19/23 11:52 Last Admin: 06/19/23 11:59 Dose: 40 mg Documented By: RB Vital Signs Vital signs: Vital Signs - 8 hr 06/19/23 10:29 06/19/23 10:24 06/19/23 10:24 Temperature 98.7 F Pulse Rate 67 68 Respiratory Rate 22 Blood Pressure 125/60 125/60 Pulse Oximetry 98 98 Oxygen Delivery Method Room Air 06/19/23 10:30 06/19/23 11:00 06/19/23 11:00 Temperature Pulse Rate 69 69 Respiratory Rate 17 17 Blood Pressure 119/53 L Pulse Oximetry 97 95 Oxygen Delivery Method 06/19/23 11:10 06/19/23 11:10 06/19/23 11:15 Temperature Pulse Rate 67 Respiratory Rate 17 Blood Pressure 113/59 L 118/56 L Pulse Oximetry 96 Oxygen Delivery Method 06/19/23 11:15 06/19/23 11:30 06/19/23 11:30 Temperature Pulse Rate 65 80 Respiratory Rate 17 15 Blood Pressure 118/62 Pulse Oximetry 95 95 Oxygen Delivery Method 06/19/23 11:45 06/19/23 11:45 06/19/23 12:05 Temperature 99.4 F Pulse Rate 67 66 Respiratory Rate 11 L 16 Blood Pressure 120/55 L 132/61 Pulse Oximetry 97 Oxygen Delivery Method CPAP 06/19/23 12:15 06/19/23 12:20 06/19/23 12:26 Temperature 99.3 F 99.3 F 99.0 F Pulse Rate 63 62 66 Respiratory Rate 16 16 17 Blood Pressure 123/58 L 110/63 120/61 Pulse Oximetry Oxygen Delivery Method 06/19/23 12:30 06/19/23 12:35 06/19/23 12:00 Temperature 98.9 F 98.9 F Pulse Rate 65 61 68 Respiratory Rate 12 15 15 Blood Pressure 107/63 109/66 Pulse Oximetry 96 Oxygen Delivery Method 06/19/23 12:01 06/19/23 12:01 06/19/23 12:05 Temperature Pulse Rate 65 66 Respiratory Rate 12 12 Blood Pressure 123/57 L Pulse Oximetry 96 96 Oxygen Delivery Method Room Air Room Air 06/19/23 12:05 06/19/23 12:15 06/19/23 12:15 Temperature Pulse Rate 63 Respiratory Rate 16 Blood Pressure 132/61 123/58 L Pulse Oximetry 96 Oxygen Delivery Method 06/19/23 12:20 06/19/23 12:20 06/19/23 12:25 Temperature Pulse Rate 64 65 Respiratory Rate 16 16 Blood Pressure 110/63 Pulse Oximetry 96 95 Oxygen Delivery Method Room Air 06/19/23 12:25 06/19/23 12:30 06/19/23 12:30 Temperature Pulse Rate 64 Respiratory Rate 17 Blood Pressure 120/61 107/63 Pulse Oximetry 96 Oxygen Delivery Method CPAP 06/19/23 12:36 06/19/23 12:36 06/19/23 12:40 Temperature Pulse Rate 65 59 L Respiratory Rate 15 11 L Blood Pressure 109/66 Pulse Oximetry 95 96 Oxygen Delivery Method CPAP 06/19/23 12:40 06/19/23 12:45 06/19/23 12:45 Temperature Pulse Rate 57 L Respiratory Rate 14 Blood Pressure 113/56 L 114/58 L Pulse Oximetry 97 Oxygen Delivery Method CPAP 06/19/23 13:00 06/19/23 13:00 06/19/23 13:15 Temperature Pulse Rate 59 L Respiratory Rate Blood Pressure 115/61 114/60 Pulse Oximetry 96 Oxygen Delivery Method 06/19/23 13:15 06/19/23 13:30 06/19/23 13:30 Temperature Pulse Rate 56 L 60 Respiratory Rate 15 19 Blood Pressure 112/61 Pulse Oximetry 97 96 Oxygen Delivery Method CPAP CPAP 06/19/23 13:59 06/19/23 14:05 06/19/23 14:20 Temperature 99.0 F 98.7 F 99.0 F Pulse Rate 60 63 59 L Respiratory Rate 18 17 16 Blood Pressure 120/65 115/61 118/63 Pulse Oximetry Oxygen Delivery Method 06/19/23 14:25 06/19/23 15:00 06/19/23 13:45 Temperature 99.2 F 99.0 F Pulse Rate 58 L 63 Respiratory Rate 12 13 Blood Pressure 112/62 121/64 116/61 Pulse Oximetry Oxygen Delivery Method 06/19/23 13:45 06/19/23 13:57 06/19/23 13:57 Temperature Pulse Rate 63 61 Respiratory Rate 16 11 L Blood Pressure 120/65 Pulse Oximetry 98 96 Oxygen Delivery Method CPAP 06/19/23 14:00 06/19/23 14:00 06/19/23 14:12 Temperature Pulse Rate 60 Respiratory Rate Blood Pressure 115/61 124/64 Pulse Oximetry 97 Oxygen Delivery Method 06/19/23 14:12 06/19/23 14:15 06/19/23 14:15 Temperature Pulse Rate 63 64 Respiratory Rate 14 11 L Blood Pressure 119/59 L Pulse Oximetry 96 97 Oxygen Delivery Method CPAP 06/19/23 14:20 06/19/23 14:20 06/19/23 14:25 Temperature Pulse Rate 59 L 58 L Respiratory Rate 12 Blood Pressure 118/63 Pulse Oximetry 97 97 Oxygen Delivery Method CPAP 06/19/23 14:25 06/19/23 14:30 06/19/23 14:30 Temperature Pulse Rate 58 L Respiratory Rate Blood Pressure 112/62 116/59 L Pulse Oximetry 96 Oxygen Delivery Method 06/19/23 14:45 06/19/23 14:45 Temperature Pulse Rate 58 L Respiratory Rate Blood Pressure 117/59 L Pulse Oximetry 98 Oxygen Delivery Method MDM - GI Bleed Medical Records Attestation: I reviewed the patient's medical records. Lab Data Attestation: I reviewed the patient's lab results. 06/19/23 10:45 06/19/23 10:45 Labs: Lab Results 06/19/23 06/19/23 06/19/23 Range/Units 10:45 10:45 10:45 WBC 16.7 H (4.5-11.0) X10^3/uL RBC 2.35 L (4.5-5.9) X10^6/uL Hgb 7.0 L (13.5-17.5) g/dL Hct 21.0 L (41-53) % MCV 89.4 (80-100) fL MCH 29.8 (26-34) PG MCHC 33.3 (30-36) % RDW 14.5 (11.6-14.8) % Plt Count 271 (150-400) X10^3/uL Neut % (Auto) 79.2 H (50-75) % Lymph % (Auto) 11.2 L (25-40) % [place] % (Auto) 8.6 (3-14) % Eos % (Auto) 0.6 L (2-4) % Baso % (Auto) 0.4 (0-2) % Neut # (Auto) 05892 H (4856-6041) /uL Lymph # (Auto) 1900 (8450-9989) /uL [place] # (Auto) 1400 H (0-900) /uL Eos # (Auto) 100 (0-450) /uL Baso # (Auto) 100 (0-100) /uL PT 16.0 H (10.1-12.7) SECONDS INR 1.4 H (0.9-1.3) APTT 26 (26-36) SECONDS Sodium 133 L (137-145) mmol/L Potassium 4.3 (3.4-5.1) mmol/L Chloride 100 (98-107) mmol/L Carbon Dioxide 28 (22-32) mmol/L BUN 24 H (9-20) mg/dL Creatinine 0.84 (0.66-1.25) mg/dL Estimated GFR > 60 (>60) mL/min BUN/Creatinine Ratio 28.6 H (6-22) Glucose 111 H (80-110) mg/dL Calcium 8.1 L (8.4-10.2) mg/dL Total Bilirubin 1.0 (0.2-1.3) mg/dL AST 31 (17-59) IU/L ALT 59 H (<50) IU/L Alkaline Phosphatase 47 (38-126) U/L Total Protein 4.9 L (6.3-8.2) g/dL Albumin 2.6 L (3.5-5.0) g/dL Globulin 2.3 (1.7-4.1) g/dL Albumin/Globulin Ratio 1.1 (1.0-2.8) Lipase 224 (23-300) U/L Blood Type Antibody Screen Crossmatch 06/19/23 Range/Units 10:45 WBC (4.5-11.0) X10^3/uL RBC (4.5-5.9) X10^6/uL Hgb (13.5-17.5) g/dL Hct (41-53) % MCV (80-100) fL MCH (26-34) PG MCHC (30-36) % RDW (11.6-14.8) % Plt Count (150-400) X10^3/uL Neut % (Auto) (50-75) % Lymph % (Auto) (25-40) % [place] % (Auto) (3-14) % Eos % (Auto) (2-4) % Baso % (Auto) (0-2) % Neut # (Auto) (8980-9722) /uL Lymph # (Auto) (3693-5534) /uL [place] # (Auto) (0-900) /uL Eos # (Auto) (0-450) /uL Baso # (Auto) (0-100) /uL PT (10.1-12.7) SECONDS INR (0.9-1.3) APTT (26-36) SECONDS Sodium (137-145) mmol/L Potassium (3.4-5.1) mmol/L Chloride (98-107) mmol/L Carbon Dioxide (22-32) mmol/L BUN (9-20) mg/dL Creatinine (0.66-1.25) mg/dL Estimated GFR (>60) mL/min BUN/Creatinine Ratio (6-22) Glucose (80-110) mg/dL Calcium (8.4-10.2) mg/dL Total Bilirubin (0.2-1.3) mg/dL AST (17-59) IU/L ALT (<50) IU/L Alkaline Phosphatase (38-126) U/L Total Protein (6.3-8.2) g/dL Albumin (3.5-5.0) g/dL Globulin (1.7-4.1) g/dL Albumin/Globulin Ratio (1.0-2.8) Lipase (23-300) U/L Blood Type O Positive Antibody Screen Negative Crossmatch See Detail Point of Care Testing Stool Occult Blood Positive ECG Data Attestation: I personally reviewed and interpreted this ECG as follows: Interpretation: Sinus rhythm Ventricular rate is 68 Occasional PVC QTC [address] T wave changes MDM Narrative Medical decision making narrative: Patient has not been tachycardic but is on a beta-jerrica. Has not been hypotensive. Is anemic. I was able to determine that his discharge hemoglobin was 12 and that was the beginning of the week. Hemoglobin today is 7. Has had progressive worsening dyspnea on exertion and fatigue. Most likely related to his anemia. His last Eliquis dose was greater than 24 hours ago. We will hold on acute reversal for now. We will hold on any further dosing for now. He is in sinus rhythm with occasional PVCs. He is having melena. Not hypoxic. I did discuss the case with on-call thoracic surgery at [facility] who stated that we should treat his anemia per his symptoms not necessarily to a specific threshold. I then discussed the case with Dr. Strange director vaccine on-call at [facility] who accepts the patient transfer. Transfer needed secondary to his recent surgery, GI capability, ICU capability etc. patient is stable for transport. Critical Care Time Critical Care Time Critical Care Time: Yes Total Critical Care Time: 35 Attestation: The high probability of a clinically significant, sudden or life threatening deterioration of the [hemodynamic/cardiovascular] system(s) required my full and direct attention, intervention and personal management. The aggregate critical care time was [35] minutes. This time is in addition to time spent performing reported procedures but includes the following: [x] Data Review and interpretation [x] Patient assessment and monitoring of vital signs [x] Documentation [x] Medication orders and management Discharge Plan Departure Patient Disposition: [facility] Clinical Impression: Symptomatic anemia, GI bleed Prescriptions: No Action acetaminophen 500 mg Tablet 1,000 mg PO Q6H PRN (Reason: Pain, Moderate) amiodarone 400 mg Tablet 400 mg PO BID Patient Comments: medications script started 06/17/2023 Rx Instructions: takle 1 tablet (400mg total) by mouth twice a day. 400mg TWICE DAILY for two weeks. 400mg once daily for two weeks, 200mg twice daily. Total of 3 months of treatment. Eliquis 5 mg tablet 5 mg PO BID ascorbic acid (vitamin C) 100 mg Tablet 100 mg PO DAILY atorvastatin 80 mg tablet 80 mg PO QPM baclofen 10 mg tablet 10 mg PO 3XD PRN (Reason: muscle spasm) cholecalciferol (vitamin D3) 25 mcg (1,000 unit) Tablet 1,000 unit PO DAILY aspirin 81 mg Tablet,Delayed Release (Dr/Ec) 81 mg PO DAILY furosemide 20 mg tablet 20 mg PO DAILY isosorbide mononitrate 30 mg tablet extended release 24 hr 30 mg PO DAILY metoprolol succinate 25 mg tablet extended release 24 hr 25 mg PO DAILY ondansetron 4 mg tablet,disintegrating 4 mg PO Q8H PRN (Reason: nausea/vomiting) potassium chloride 20 mEq tablet,ER particles/crystals 20 meq PO BID scopolamine base 1 mg over 3 days patch 3 day 1 patch topical Q3D PRN (Reason: Nausea And Vomiting) amlodipine 5 mg tablet 5 mg PO DAILY Qty: 30 5RF losartan 100 mg tablet 100 mg PO DAILY trazodone 100 mg tablet 100 mg PO DAILY PRN (Reason: insomnia) Patient Comments: uses infrequently Referrals: Sumanth Pham MD [Primary Care Provider] -
[2023-06-19 11:07] LABS: Alanine Aminotransferase 59 IU/L (<50); Albumin 2.6 g/dL (3.5-5.0); Albumin Globulin Ratio 1.1 (1.0-2.8); Alkaline Phosphatase 47 U/L (38-126); Aspartate Aminotransferase 31 IU/L (17-59); BUN Creatinine Ratio 28.6 (6-22); Blood Urea Nitrogen 24 mg/dL (9-20); Calcium 8.1 mg/dL (8.4-10.2); Carbon Dioxide 28 mmol/L (22-32); Chloride 100 mmol/L (98-107); Estimated Glomerular Filt Rate > 60 mL/min (>60); Globulin 2.3 g/dL (1.7-4.1); Glucose 111 mg/dL (80-110); HEMOLYSIS < 15 (0-50); Lipase 224 U/L (23-300); Potassium 4.3 mmol/L (3.4-5.1); Sodium 133 mmol/L (137-145); Total Protein 4.9 g/dL (6.3-8.2)
[2023-06-19] MEDS: PANTOPRAZOLE 40 MG VIAL IV (11:59)
--- NOTE | 2023-06-19 13:38 | PC.NURSE ---
Patient was informed of acceptance to transfer to [facility]. Pt states this is not good news and became tearful. Pt states he felt like he was going crazy being in the hospital for 8 days. Calling to notify her.
--- NOTE | 2023-06-19 14:09 | PC.NURSE ---
Patient's IV pump kept alarming for distal occlusion even with all clamps opened. The pump lock was inserted to open the pump door and remove IV line, then restarting the process. This took 4 minutes to resolve and delayed blood admin.
--- NOTE | 2023-06-19 15:52 | PC.NURSE ---
Pt was able to stand up at the bedside to use the urinal. Patient denies any dizziness while standing since receiving the 2x units of blood. Pt denies pain. Pt transferred into transport stretcher with minimal assistance. Pt states he is feeling better. BP 122/72, HR 60, o2 97%.
== END 2023-06-19 15:41 | disposition short-term general hospital (02) ==
PROVIDERS: Emergency Provider Emergency Medicine; Family Provider Family Medicine; PCP Family Medicine
DX: K92.2 Gastrointestinal hemorrhage, unspecified (principal); D64.9 Anemia, unspecified; R07.9 Chest pain, unspecified; Z79.01 Long term (current) use of anticoagulants
CPT/HCPCS: 36415; 36430; 80053; 82272; 83690; 85025; 85610; 85730; 86850; 86900; 86901; 93005; 93010; 96374; 99285; P9016; C9113

== ENCOUNTER → 2024-11-28 06:57 | Outpatient (CLI) | payer MEDICARE, SELFPAY ==
[2023-01-29 17:39] VITALS: BMI 39.9
--- NOTE | 2024-11-28 06:59 | DI.US.S_ITS ---
PROCEDURE: US RETROPERITONEAL COMP INDICATIONS: [id number] TECHNIQUE: Color and pulse Doppler interrogation was performed of the aorta and iliac arterial systems, with image documentation. COMPARISON: None. FINDINGS: Aorta: 134 cm/sec, with triphasic flow. Proximal aorta measures 3.0 x 2.7 cm. Mid aorta measures 2.1 x 1.8 cm, distal aorta measures 2.0 x 1.8 cm. Right lower extremity: Common iliac artery: 123 cm/sec, with triphasic flow. Common iliac measures 1.2 x 1.0 cm. External iliac artery: 170 cm/sec, with triphasic flow. External iliac measures 1.2 x 1.0 cm. Common femoral artery: 95 cm/sec, with triphasic flow. Sow-scale imaging description: Mild plaque. Widely patent vessels. Left lower extremity: Common iliac artery: 131 cm/sec, with triphasic flow. External iliac artery: 125 cm/sec, with triphasic flow. Common femoral artery: 104 cm/sec, with triphasic flow. Sow-scale imaging description: Mild plaque. Widely patent vessels. IMPRESSION: 1. Proximal aorta is ectatic but not frankly aneurysmal. Mid and distal aorta are of normal caliber. 2. Normal caliber iliacs. 3. Mild diffuse plaque with no significant stenosis. Patent vessels. Normal waveforms. Dictated by: Hernando Hsu M.D. on 11/29/2024 at 11:03 Approved by: Hernando Hsu M.D. on 11/29/2024 at 11:08
== END ==
PROVIDERS: Family Provider Family Medicine; PCP Family Medicine; Referring Provider Nurse Practitioner; Visit Provider Nurse Practitioner
DX: I73.9 Peripheral vascular disease, unspecified (principal)
CPT/HCPCS: 76770

== ENCOUNTER 2024-11-30 15:35 | Inpatient (IN) | payer MEDICARE, SELFPAY ==
[2023-01-29 17:39] VITALS: BMI 39.9
[2024-11-30] VITALS (20 sets, daily range): BP systolic 138–211; BP diastolic 79–105; PULSE 53–68; RESP 12–24; TEMP 36.5; O2SAT 96–99; BMI 40.4; BMI 38.8
--- NOTE | 2024-11-30 15:39 | DI.RAD.S_ITS ---
PROCEDURE: XR CHEST 1V INDICATIONS: chest pain TECHNIQUE: One view of the chest was acquired. COMPARISON: [facility], CR, XR CHEST 1V, 01/29/2023, 14:23. FINDINGS: Surgical changes and devices: Median sternotomy wires are seen. Lungs and pleura: Lungs are clear. No pleural effusions or pneumothorax. Mediastinum: Mediastinal contours appear normal. Heart size is enlarged. Bones and chest wall: No suspicious bony lesions. Overlying soft tissues appear unremarkable. IMPRESSION: No acute cardiopulmonary pathology. Dictated by: Matias Talavera M.D. on 11/30/2024 at 16:05 Approved by: Matias Talavera M.D. on 11/30/2024 at 16:08
--- NOTE | 2024-11-30 15:42 | EKG_ITS ---
[address] [address] Test Date: 2024-11-30 Pat Name: Sumanth De La Rosa Department: Room: Gender: Male Hose Stripper: JUAN PABLO : 1955 Requested By: Order Number: [id number] Reading MD: Measurements Intervals [place] Rate: 70 P: 26 OR: 182 QRS: 71 QRSD: 164 T: -5 QT: 454 QTc: 490 Interpretive Statements SINUS RHYTHM with PVCs Right bundle branch block Electronically Signed On 12-01-2024 7:38:26 PST by Riley Velazco
--- NOTE | 2024-11-30 15:51 | ED.GENADULT ---
HPI - General Adult <Jade Gallego MD - Last Filed: 12/02/24 07:19> General Chief complaint: Chest Pain Stated complaint: chest pain, hx of bypass Time Seen by Provider: 11/30/24 15:50 History of Present Illness HPI narrative: 67-year-old gentleman with a history of coronary artery disease, hypertension, hyperlipidemia, you did have an episode of atrial fibrillation treated with amiodarone after bypass surgery in 2022 but has not had any recent issues. Seen by [facility] cardiology notes that he has been having exertional dyspnea to the point he is difficulty crossing room over the last 6 weeks. Over the last couple of days he has been feeling that there is an overall increase in central chest tightness, exertional dyspnea and also complaints he has had some indigestion. He has not sure how many of those symptoms are actually cardiac related. About a month ago he had an upper respiratory infection and feels that he had a prolonged cough, still has slight hoarse voice but is feeling significantly better. No current fevers or myalgias. He has not noticing significant orthopnea or lower extremity edema Related Data Home Medications Medication Instructions Recorded Confirmed losartan 100 mg tablet 50 mg PO BID 11/11/18 11/30/24 trazodone 100 mg tablet 50 mg PO QPM PRN insmonia 10/18/20 11/30/24 acetaminophen 500 mg tablet 1,000 mg PO Q6H PRN Pain, Moderate 06/19/23 11/30/24 aspirin 81 mg tablet,delayed 81 mg PO DAILY 06/19/23 11/30/24 release cholecalciferol (vitamin D3) 25 2,000 unit PO DAILY 06/19/23 11/30/24 mcg (1,000 unit) tablet atorvastatin 40 mg tablet (Lipitor) 80 mg PO QPM 11/30/24 11/30/24 docosahexaenoic acid (dha)-epa 1 cap PO DAILY 11/30/24 11/30/24 capsule glucosam-sod chondro-vit C-natacha 1 tab PO DAILY 11/30/24 11/30/24 tablet magnesium oxide 400 mg (241.3 mg 400 mg PO DAILY 11/30/24 11/30/24 magnesium) tablet multivit with minerals-iron 18 1 tab PO DAILY 11/30/24 11/30/24 mg-folic ac 400 mcg-vit K 25 mcg tablet (Adults Multivitamin) Previous Rx's Medication Instructions Recorded amlodipine 5 mg tablet 5 mg PO DAILY #30 tabs 01/30/23 Allergies Allergy/AdvReac Type Severity Reaction Status Date / Time amlodipine Allergy Intermediate Verified 11/30/24 17:38 amoxicillin Allergy Intermediate Hives Verified 01/29/23 18:17 Review of Systems <Jade Gallego MD - Last Filed: 12/02/24 07:19> Review of Systems Narrative: Pertinent positive and negative findings as per HPI Patient History <Jade Gallego MD - Last Filed: 12/02/24 07:19> Medical History (Updated 11/30/24 @ 19:47 by Mitzi Hernandez DO) Hypertension Morbid obesity with BMI of 40.0-44.9, adult Obstructive sleep apnea of adult Primary insomnia Snoring Social History marital status: household members: spouse 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 history: retired after 37 years with [employer] 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 Able to give a complete and coherent history. Well-nourished well-developed HEENT: Moist mucous membranes, normal sclera with reactive pupils, Neck: No JVD, supple Respiratory: Lungs are clear to auscultation, no wheezing no rales no rhonchi. Full and symmetrical air movement Cardiac: Regular rate and rhythm no murmurs no bruits Abdomen: Soft, nontender, good bowel tones, no flank pain Skin: Warm and dry, no rashes Neurologic: Grossly neurologically intact with no obvious asymmetries or abnormalities Extremities: No trauma, well perfused Psych: Cooperative, appropriate insight and affect Initial Vital Signs Initial Vital Signs: Vital Signs Temperature 97.7 F 11/30/24 15:42 Pulse Rate 64 11/30/24 15:42 Respiratory Rate 20 11/30/24 15:42 Blood Pressure 211/99 H 11/30/24 15:42 Pulse Oximetry 97 11/30/24 15:42 Oxygen Delivery Method Room Air 11/30/24 15:42 <Mizti Hernandez DO - Last Filed: 12/01/24 05:47> Initial Vital Signs Initial Vital Signs: Vital Signs Temperature 97.7 F 11/30/24 15:42 Pulse Rate 64 11/30/24 15:42 Respiratory Rate 20 11/30/24 15:42 Blood Pressure 211/99 H 11/30/24 15:42 Pulse Oximetry 97 11/30/24 15:42 Oxygen Delivery Method Room Air 11/30/24 15:42 Course <Jade Gallego MD - Last Filed: 12/02/24 07:19> Orders Ordered: Acetaminophen (Acetaminophen 325 Mg Tablet) 650 mg PO Q6H PRN PRN Reason: Fever/Mild Pain (1-3) Albuterol (Albuterol 2.5 Mg/3 Ml Neb (Adult)) 2.5 mg INH [id number] PRN PRN Reason: Dyspnea Amlodipine Besylate (Amlodipine 5 Mg Tablet) 5 mg PO DAILY [facility] Last Admin: 12/01/24 09:36 Dose: Not Given Documented By: AWF Aspirin (Aspirin Ec 81 Mg Tablet) 81 mg PO DAILY [facility] Last Admin: 12/01/24 09:37 Dose: 81 mg Documented By: FELICE Atorvastatin Calcium (Atorvastatin 20 Mg Tablet) 80 mg PO BEDTIME [facility] Last Admin: 12/01/24 20:45 Dose: 80 mg Documented By: AM Bisacodyl (Bisacodyl 10 Mg Supp) 10 mg MO DAILY PRN PRN Reason: Constipation Furosemide (Furosemide 40 Mg/4 Ml Vial) 40 mg IV Q12HR [facility] Last Admin: 12/02/24 00:18 Dose: 40 mg Documented By: Admin: 12/01/24 13:04 Dose: 40 mg Documented By: Admin: 11/30/24 23:38 Dose: 40 mg Documented By: WINSTON Hydralazine HCl (Hydralazine 20 Mg/Ml Vial) 10 mg IV Q6HR PRN PRN Reason: SBP>= 160 or DBP >=110 Losartan Potassium (Losartan 50 Mg Tablet) 50 mg PO BID [facility] Last Admin: 12/01/24 20:45 Dose: 50 mg Documented By: Admin: 12/01/24 09:38 Dose: 50 mg Documented By: Admin: 11/30/24 22:04 Dose: 50 mg Documented By: WINSTON Magnesium Oxide (Magnesium Oxide 400 Mg Tablet) 400 mg PO DAILY [facility] Last Admin: 12/01/24 09:39 Dose: 400 mg Documented By: FELICE Melatonin (Melatonin 3 Mg Tablet) 9 mg PO BEDTIME PRN PRN Reason: insomnia Multivitamins (Multivitamin 1 Tablet) 1 tab PO DAILY [facility] Last Admin: 12/01/24 09:39 Dose: 1 tab Documented By: FELICE Naloxone HCl (Naloxone 0.4 Mg/Ml Vial) 0.2 mg IV Q2MIN PRN PRN Reason: Opiate Reversal Nitroglycerin (Nitroglycerin 0.4 Mg Sl Tab) 0.4 mg SL [id number] PRN PRN Reason: Chest Pain Ondansetron HCl (Ondansetron 4 Mg/2 Ml Inj) 4 mg IV Q8HR PRN PRN Reason: Nausea And Vomiting Sodium Chloride (Sodium Chloride 0.9% Flush) 10 ml IV PRN PRN PRN Reason: Flush Last Admin: 11/30/24 23:38 Dose: 10 ml Documented By: WINSTON Sodium Chloride (Sodium Chloride 0.9% Flush) 10 ml IV BID [facility] Last Admin: 12/01/24 20:45 Dose: 10 ml Documented By: Admin: 12/01/24 09:00 Dose: 10 ml Documented By: FELICE Trazodone HCl (Trazodone 50 Mg Tablet) 50 mg PO BEDTIME [facility] Last Admin: 12/01/24 20:45 Dose: 50 mg Documented By: AM Vitamin D (Cholecalciferol (Vitamin D3) 1,000 Unit Tablet) 2,000 unit PO DAILY [facility] Last Admin: 12/01/24 09:37 Dose: 2,000 unit Documented By: FELICE Discontinued Medications Amlodipine Besylate (Amlodipine 5 Mg Tablet) 5 mg PO NOW ONE Stop: 11/30/24 17:07 Last Admin: 11/30/24 17:30 Dose: Not Given Documented By: Aspirin (Aspirin 81 Mg Chew Tab) 324 mg PO NOW ONE Stop: 11/30/24 15:40 Last Admin: 11/30/24 16:17 Dose: 243 mg Documented By: MALLIKA Atorvastatin Calcium (Atorvastatin 20 Mg Tablet) 80 mg PO QPM [facility] Losartan Potassium (Losartan 50 Mg Tablet) 50 mg PO NOW ONE Stop: 11/30/24 17:07 Last Admin: 11/30/24 17:30 Dose: 50 mg Documented By: Non-Formulary Medication (Acetaminophen) 1,000 mg PO Q6H PRN PRN Reason: Pain, Moderate Non-Formulary Medication (Docosahexaenoic Acid-Epa) 1 cap PO DAILY [facility] Last Admin: 12/01/24 09:38 Dose: Not Given Documented By: FELICE Non-Formulary Medication (Glucosam-Sod Chondro-Vit C-Natacha) 1 tab PO DAILY [facility] Last Admin: 12/01/24 09:38 Dose: Not Given Documented By: PORSCHEF Trazodone HCl (Trazodone 50 Mg Tablet) 50 mg PO DAILY [facility] Last Admin: 12/01/24 09:40 Dose: Not Given Documented By: FELICE Vital Signs Vital signs: Vital Signs - 8 hr 11/30/24 15:42 11/30/24 15:52 11/30/24 15:53 Temperature 97.7 F Pulse Rate 64 63 Respiratory Rate 20 Blood Pressure 211/99 H 184/92 H Pulse Oximetry 97 98 Oxygen Delivery Method Room Air 11/30/24 15:53 11/30/24 16:00 11/30/24 16:00 Temperature Pulse Rate 63 62 Respiratory Rate 17 Blood Pressure 211/99 H Pulse Oximetry 98 97 Oxygen Delivery Method 11/30/24 16:11 11/30/24 16:11 11/30/24 16:30 Temperature Pulse Rate 63 61 Respiratory Rate 15 14 Blood Pressure 176/84 H Pulse Oximetry 98 97 Oxygen Delivery Method 11/30/24 16:31 11/30/24 16:31 11/30/24 17:00 Temperature Pulse Rate 60 55 L Respiratory Rate 17 12 Blood Pressure 169/84 H Pulse Oximetry 98 97 Oxygen Delivery Method 11/30/24 17:01 11/30/24 17:01 11/30/24 17:30 Temperature Pulse Rate 58 L 59 L Respiratory Rate 24 Blood Pressure 171/105 H 175/100 H Pulse Oximetry 97 Oxygen Delivery Method Room Air 11/30/24 17:30 11/30/24 17:30 11/30/24 18:00 Temperature Pulse Rate 53 L Respiratory Rate 15 Blood Pressure 161/86 H 162/94 H Pulse Oximetry 99 Oxygen Delivery Method 11/30/24 18:00 11/30/24 18:30 11/30/24 18:30 Temperature Pulse Rate 55 L 54 L 60 Respiratory Rate 13 15 21 Blood Pressure 175/93 H Pulse Oximetry 99 98 99 Oxygen Delivery Method Room Air <Mitzi Hernandez, DO - Last Filed: 12/01/24 05:47> Orders Ordered: Acetaminophen (Acetaminophen 325 Mg Tablet) 650 mg PO Q6H PRN PRN Reason: Fever/Mild Pain (1-3) Albuterol (Albuterol 2.5 Mg/3 Ml Neb (Adult)) 2.5 mg INH [id number] PRN PRN Reason: Dyspnea Amlodipine Besylate (Amlodipine 5 Mg Tablet) 5 mg PO DAILY [facility] Last Admin: 12/01/24 09:36 Dose: Not Given Documented By: PORSCHEF Aspirin (Aspirin Ec 81 Mg Tablet) 81 mg PO DAILY [facility] Last Admin: 12/01/24 09:37 Dose: 81 mg Documented By: AWF Atorvastatin Calcium (Atorvastatin 20 Mg Tablet) 80 mg PO BEDTIME [facility] Last Admin: 12/01/24 20:45 Dose: 80 mg Documented By: AM Bisacodyl (Bisacodyl 10 Mg Supp) 10 mg MO DAILY PRN PRN Reason: Constipation Furosemide (Furosemide 40 Mg/4 Ml Vial) 40 mg IV Q12HR [facility] Last Admin: 12/02/24 00:18 Dose: 40 mg Documented By: Admin: 12/01/24 13:04 Dose: 40 mg Documented By: Admin: 11/30/24 23:38 Dose: 40 mg Documented By: WINSTON Hydralazine HCl (Hydralazine 20 Mg/Ml Vial) 10 mg IV Q6HR PRN PRN Reason: SBP>= 160 or DBP >=110 Losartan Potassium (Losartan 50 Mg Tablet) 50 mg PO BID [facility] Last Admin: 12/01/24 20:45 Dose: 50 mg Documented By: Admin: 12/01/24 09:38 Dose: 50 mg Documented By: Admin: 11/30/24 22:04 Dose: 50 mg Documented By: WINSTON Magnesium Oxide (Magnesium Oxide 400 Mg Tablet) 400 mg PO DAILY [facility] Last Admin: 12/01/24 09:39 Dose: 400 mg Documented By: AWF Melatonin (Melatonin 3 Mg Tablet) 9 mg PO BEDTIME PRN PRN Reason: insomnia Multivitamins (Multivitamin 1 Tablet) 1 tab PO DAILY [facility] Last Admin: 12/01/24 09:39 Dose: 1 tab Documented By: FELICE Naloxone HCl (Naloxone 0.4 Mg/Ml Vial) 0.2 mg IV Q2MIN PRN PRN Reason: Opiate Reversal Nitroglycerin (Nitroglycerin 0.4 Mg Sl Tab) 0.4 mg SL [id number] PRN PRN Reason: Chest Pain Ondansetron HCl (Ondansetron 4 Mg/2 Ml Inj) 4 mg IV Q8HR PRN PRN Reason: Nausea And Vomiting Sodium Chloride (Sodium Chloride 0.9% Flush) 10 ml IV PRN PRN PRN Reason: Flush Last Admin: 11/30/24 23:38 Dose: 10 ml Documented By: WINSTON Sodium Chloride (Sodium Chloride 0.9% Flush) 10 ml IV BID [facility] Last Admin: 12/01/24 20:45 Dose: 10 ml Documented By: Admin: 12/01/24 09:00 Dose: 10 ml Documented By: FELICE Trazodone HCl (Trazodone 50 Mg Tablet) 50 mg PO BEDTIME [facility] Last Admin: 12/01/24 20:45 Dose: 50 mg Documented By: WILBER Vitamin D (Cholecalciferol (Vitamin D3) 1,000 Unit Tablet) 2,000 unit PO DAILY [facility] Last Admin: 12/01/24 09:37 Dose: 2,000 unit Documented By: FELICE Discontinued Medications Amlodipine Besylate (Amlodipine 5 Mg Tablet) 5 mg PO NOW ONE Stop: 11/30/24 17:07 Last Admin: 11/30/24 17:30 Dose: Not Given Documented By: Aspirin (Aspirin 81 Mg Chew Tab) 324 mg PO NOW ONE Stop: 11/30/24 15:40 Last Admin: 11/30/24 16:17 Dose: 243 mg Documented By: MALLIKA Atorvastatin Calcium (Atorvastatin 20 Mg Tablet) 80 mg PO QPM [facility] Losartan Potassium (Losartan 50 Mg Tablet) 50 mg PO NOW ONE Stop: 11/30/24 17:07 Last Admin: 11/30/24 17:30 Dose: 50 mg Documented By: Non-Formulary Medication (Acetaminophen) 1,000 mg PO Q6H PRN PRN Reason: Pain, Moderate Non-Formulary Medication (Docosahexaenoic Acid-Epa) 1 cap PO DAILY [facility] Last Admin: 12/01/24 09:38 Dose: Not Given Documented By: FELICE Non-Formulary Medication (Glucosam-Sod Chondro-Vit C-Natacha) 1 tab PO DAILY [facility] Last Admin: 12/01/24 09:38 Dose: Not Given Documented By: FELICE Trazodone HCl (Trazodone 50 Mg Tablet) 50 mg PO DAILY [facility] Last Admin: 12/01/24 09:40 Dose: Not Given Documented By: FELICE Vital Signs Vital signs: Vital Signs - 8 hr 11/30/24 15:42 11/30/24 15:52 11/30/24 15:53 Temperature 97.7 F Pulse Rate 64 63 Respiratory Rate 20 Blood Pressure 211/99 H 184/92 H Pulse Oximetry 97 98 Oxygen Delivery Method Room Air 11/30/24 15:53 11/30/24 16:00 11/30/24 16:00 Temperature Pulse Rate 63 62 Respiratory Rate 17 Blood Pressure 211/99 H Pulse Oximetry 98 97 Oxygen Delivery Method 11/30/24 16:11 11/30/24 16:11 11/30/24 16:30 Temperature Pulse Rate 63 61 Respiratory Rate 15 14 Blood Pressure 176/84 H Pulse Oximetry 98 97 Oxygen Delivery Method 11/30/24 16:31 11/30/24 16:31 11/30/24 17:00 Temperature Pulse Rate 60 55 L Respiratory Rate 17 12 Blood Pressure 169/84 H Pulse Oximetry 98 97 Oxygen Delivery Method 11/30/24 17:01 11/30/24 17:01 11/30/24 17:30 Temperature Pulse Rate 58 L 59 L Respiratory Rate 24 Blood Pressure 171/105 H 175/100 H Pulse Oximetry 97 Oxygen Delivery Method Room Air 11/30/24 17:30 11/30/24 17:30 11/30/24 18:00 Temperature Pulse Rate 53 L Respiratory Rate 15 Blood Pressure 161/86 H 162/94 H Pulse Oximetry 99 Oxygen Delivery Method 11/30/24 18:00 11/30/24 18:30 11/30/24 18:30 Temperature Pulse Rate 55 L 54 L 60 Respiratory Rate 13 15 21 Blood Pressure 175/93 H Pulse Oximetry 99 98 99 Oxygen Delivery Method Room Air Medical Decision Making <Jade Gallego MD - Last Filed: 12/02/24 07:19> Lab Data 11/30/24 15:49 12/01/24 01:59 Labs: Lab Results 11/30/24 11/30/24 Range/Units 15:49 17:49 WBC 6.7 (4.5-11.0) X10^3/uL RBC 5.27 (4.5-5.9) X10^6/uL Hgb 15.9 (13.5-17.5) g/dL Hct 47.7 (41-53) % MCV 90.5 (80-100) fL MCH 30.1 (26-34) PG MCHC 33.2 (30-36) % RDW 14.4 (11.6-14.8) % Plt Count 142 L (150-400) X10^3/uL Neut % (Auto) 67.9 (50-75) % Lymph % (Auto) 19.5 L (25-40) % [place] % (Auto) 9.6 (3-14) % Eos % (Auto) 2.4 (2-4) % Baso % (Auto) 0.6 (0-2) % Neut # (Auto) 4600 (2045-1421) /uL Lymph # (Auto) 1300 (8460-9253) /uL [place] # (Auto) 600 (0-900) /uL Eos # (Auto) 200 (0-450) /uL Baso # (Auto) 0 (0-100) /uL PT 12.3 (9.4-12.5) SECONDS INR 1.1 (0.9-1.3) APTT 35 (25.1-36.5) SECONDS Sodium 140 (137-145) mmol/L Potassium 4.6 (3.4-5.1) mmol/L Chloride 107 (98-107) mmol/L Carbon Dioxide 25 (22-32) mmol/L BUN 21 H (9-20) mg/dL Creatinine 0.78 (0.66-1.25) mg/dL Estimated GFR > 60 (>60) mL/min BUN/Creatinine Ratio 26.9 H (6-22) Glucose 87 (80-110) mg/dL Calcium 9.4 (8.4-10.2) mg/dL Magnesium 1.9 (1.6-2.3) mg/dL Total Bilirubin 2.2 H (0.2-1.3) mg/dL AST 44 (17-59) IU/L ALT 34 (<50) IU/L Alkaline Phosphatase 73 (38-126) U/L Total Creatine Kinase 96 (55-170) U/L Troponin I 0.045 H 0.042 H (0.01-0.034) ng/mL NT-Pro-B Natriuret Pep 288 H (<125) pg/mL Total Protein 7.1 (6.3-8.2) g/dL Albumin 4.6 (3.5-5.0) g/dL Globulin 2.5 (1.7-4.1) g/dL Albumin/Globulin Ratio 1.8 (1.0-2.8) Lipase 71 (23-300) U/L MDM Narrative Medical decision making narrative: CC: Chest tightness and indigestion for the last 48 hours, increasing exertional dyspnea over the 6 months Complicating co-morbidities: Prior 2 vessel CABG, elevated blood pressure, progressive dyspnea over the last 6 months worse in the last 48 hours now with ?indigestion? Data collected from: patient Medical records reviewed: Patient was admitted January 30, 2023 for chest pain, felt to be atypical. At that time was also having difficulty with exercise, exertional dyspnea, uncontrolled blood pressure PVCs. Cardiac wrist at that time was felt to be intermediate with a stress exercise test and outpatient follow up is recommended Differential considered: Acute coronary syndrome, unstable angina, congestive heart failure, hypertensive crisis Exam documented above, pertinent findings include: Exam is relatively benign. He has no crackles no JVD. No reproducible chest pain. Minimal pitting lower extremity edema. No abdominal pain Lab Test results independently reviewed as above. Pertinent findings: CBC is unremarkable Initial chemistries are reassuring. Total bilirubin slightly elevated at 2.2 with AST, ALT, alk-phos all within normal limits ProBNP is minimally elevated at 288 Initial troponin is elevated at 0.045 Lipase is not elevated Independently reviewed EKG: EKG does appear to be underlying sinus rhythm, he has a right bundle branch block with frequent PVCs Imaging studies independently reviewed: Chest x-ray does not show acute pathology. He does have mild cardiomegaly. Consultations: Treatments: Blood pressure was elevated, he was given his evening doses of amlodipine and losartan. Blood pressure has gotten down to 160/85. Re-evaluations: 630pm patient states that he is feeling better. No dyspnea at rest. Initial troponin is slightly elevated. Blood pressure still remains slightly elevated. HEART score is 5 with the initial troponin being elevated. Second troponin is currently pending. Care is handed over to Dr. Hernandez Discussion: <Mitzi Hernandez, DO - Last Filed: 12/01/24 05:47> Lab Data Labs: Lab Results 11/30/24 11/30/24 Range/Units 15:49 17:49 WBC 6.7 (4.5-11.0) X10^3/uL RBC 5.27 (4.5-5.9) X10^6/uL Hgb 15.9 (13.5-17.5) g/dL Hct 47.7 (41-53) % MCV 90.5 (80-100) fL MCH 30.1 (26-34) PG MCHC 33.2 (30-36) % RDW 14.4 (11.6-14.8) % Plt Count 142 L (150-400) X10^3/uL Neut % (Auto) 67.9 (50-75) % Lymph % (Auto) 19.5 L (25-40) % [place] % (Auto) 9.6 (3-14) % Eos % (Auto) 2.4 (2-4) % Baso % (Auto) 0.6 (0-2) % Neut # (Auto) 4600 (6768-4171) /uL Lymph # (Auto) 1300 (3928-4991) /uL [place] # (Auto) 600 (0-900) /uL Eos # (Auto) 200 (0-450) /uL Baso # (Auto) 0 (0-100) /uL PT 12.3 (9.4-12.5) SECONDS INR 1.1 (0.9-1.3) APTT 35 (25.1-36.5) SECONDS Sodium 140 (137-145) mmol/L Potassium 4.6 (3.4-5.1) mmol/L Chloride 107 (98-107) mmol/L Carbon Dioxide 25 (22-32) mmol/L BUN 21 H (9-20) mg/dL Creatinine 0.78 (0.66-1.25) mg/dL Estimated GFR > 60 (>60) mL/min BUN/Creatinine Ratio 26.9 H (6-22) Glucose 87 (80-110) mg/dL Calcium 9.4 (8.4-10.2) mg/dL Magnesium 1.9 (1.6-2.3) mg/dL Total Bilirubin 2.2 H (0.2-1.3) mg/dL AST 44 (17-59) IU/L ALT 34 (<50) IU/L Alkaline Phosphatase 73 (38-126) U/L Total Creatine Kinase 96 (55-170) U/L Troponin I 0.045 H 0.042 H (0.01-0.034) ng/mL NT-Pro-B Natriuret Pep 288 H (<125) pg/mL Total Protein 7.1 (6.3-8.2) g/dL Albumin 4.6 (3.5-5.0) g/dL Globulin 2.5 (1.7-4.1) g/dL Albumin/Globulin Ratio 1.8 (1.0-2.8) Lipase 71 (23-300) U/L MDM Narrative Medical decision making narrative: CC: Chest tightness and indigestion for the last 48 hours, increasing exertional dyspnea over the 6 months Complicating co-morbidities: Prior 2 vessel CABG, elevated blood pressure, progressive dyspnea over the last 6 months worse in the last 48 hours now with ?indigestion? Data collected from: patient Medical records reviewed: Patient was admitted January 30, 2023 for chest pain, felt to be atypical. At that time was also having difficulty with exercise, exertional dyspnea, uncontrolled blood pressure PVCs. Cardiac wrist at that time was felt to be intermediate with a stress exercise test and outpatient follow up is recommended Differential considered: Acute coronary syndrome, unstable angina, congestive heart failure, hypertensive crisis Exam documented above, pertinent findings include: Exam is relatively benign. He has no crackles no JVD. No reproducible chest pain. Minimal pitting lower extremity edema. No abdominal pain Lab Test results independently reviewed as above. Pertinent findings: CBC is unremarkable Initial chemistries are reassuring. Total bilirubin slightly elevated at 2.2 with AST, ALT, alk-phos all within normal limits ProBNP is minimally elevated at 288 Initial troponin is elevated at 0.045 Lipase is not elevated Independently reviewed EKG: EKG does appear to be underlying sinus rhythm, he has a right bundle branch block with frequent PVCs Imaging studies independently reviewed: Chest x-ray does not show acute pathology. He does have mild cardiomegaly. Consultations: Treatments: Blood pressure was elevated, he was given his evening doses of amlodipine and losartan. Blood pressure has gotten down to 160/85. Re-evaluations: 630pm patient states that he is feeling better. No dyspnea at rest. Initial troponin is slightly elevated. Blood pressure still remains slightly elevated. HEART score is 5 with the initial troponin being elevated. Second troponin is currently pending. Care is handed over to Dr. Hernandez Discussion: 11/30/2024 Dr. Hernandez: Patient signed out to myself by Dr. Gallego. Patient presents with exertional dyspnea, difficulty with the exercise and control blood pressure. Patient's labs, EKG, chest x-ray were reviewed. Patient has a mild thrombocytopenia. BUN 21 total bilirubin slightly up at 2.2 troponin is 0.045 repeat 0.042 with a BNP of 288 prior troponins were negative at less than 0.012. Chest x-ray shows no acute change. EKG shows sinus with PVCs has a prior from 06/19/2023 which appears similar and also has right bundle-branch block. Patient was seen and evaluated by myself agree with exam findings above. Patient was currently asymptomatic. Consult with the patient's Cardiology team about observation vs transfer Call to Cardiology [facility] @ [phone] Aguirre would recommend stress test and echo if high-risk stress would recommend transfer. Would be for Cardiology to consult and their hospitalist to be the accepting physician. If our hospitalist is very uncomfortable with that they could potentially transfer up for stress testing and workup but there maybe significant delay as the hospitalist or quite full currently. [address] Spoke with tele hospitalist Dr. Griffith, who accepts for observation plan for stress test and echo. Reviewed recommendations from Dr. Aguirre they would be happy to to see patient in [place] if any new changes or high risk stress test. Discharge Plan Departure Patient Disposition: Admitted as Observation Clinical Impression: Exertional dyspnea, Atypical chest pain Admit Date/Time: 11/30/24 19:45 Admit Provider: Seth Griffith
[2024-11-30 15:56] LABS: Add Manual Diff / Slide Review NO; Basophils Absolute Auto 0 /uL (0-100); Basophils Percent Auto 0.6 % (0-2); Eosinophils Absolute Auto 200 /uL (0-450); Eosinophils Percent Auto 2.4 % (2-4); Hematocrit 47.7 % (41-53); Hemoglobin 15.9 g/dL (13.5-17.5); Lymphocytes Absolute Auto 1300 /uL (1100-4500); Lymphocytes Percent Auto 19.5 % (25-40); Mean Corpuscular HGB Conc 33.2 % (30-36); Mean Corpuscular Hemoglobin 30.1 PG (26-34); Mean Corpuscular Volume 90.5 fL (80-100); Monocytes Absolute Auto 600 /uL (0-900); Monocytes Percent Auto 9.6 % (3-14); Neutrophils Absolute Auto 4600 /uL (1500-7000); Neutrophils Percent Auto 67.9 % (50-75); Platelet Count 142 X10^3/uL (150-400); Red Blood Cell Count 5.27 X10^6/uL (4.5-5.9); Red Cell Distribution Width 14.4 % (11.6-14.8); White Blood Cell Count 6.7 X10^3/uL (4.5-11.0)
[2024-11-30 16:03] LABS: INR 1.1 (0.9-1.3); Prothrombin Time 12.3 SECONDS (9.4-12.5)
[2024-11-30 16:06] LABS: PTT Partial Thromboplastin Tim 35 SECONDS (25.1-36.5)
[2024-11-30] MEDS: ASPIRIN 81 MG CHEW TAB 324 MG PO (16:17)
[2024-11-30 16:22] LABS: NT-proBNP (BNP-Adult 18+) 288 pg/mL (<125); Troponin I 0.045 ng/mL (0.01-0.034)
[2024-11-30 16:25] LABS: Alanine Aminotransferase 34 IU/L (<50); Albumin 4.6 g/dL (3.5-5.0); Albumin Globulin Ratio 1.8 (1.0-2.8); Alkaline Phosphatase 73 U/L (38-126); Aspartate Aminotransferase 44 IU/L (17-59); BUN Creatinine Ratio 26.9 (6-22); Bilirubin Total 2.2 mg/dL (0.2-1.3); Blood Urea Nitrogen 21 mg/dL (9-20); Calcium 9.4 mg/dL (8.4-10.2); Carbon Dioxide 25 mmol/L (22-32); Chloride 107 mmol/L (98-107); Estimated Glomerular Filt Rate > 60 mL/min (>60); Globulin 2.5 g/dL (1.7-4.1); Glucose 87 mg/dL (80-110); Lipase 71 U/L (23-300); Magnesium 1.9 mg/dL (1.6-2.3); Sodium 140 mmol/L (137-145); Total Protein 7.1 g/dL (6.3-8.2)
[2024-11-30 16:26] LABS: HEMOLYSIS 105 (0-50)
[2024-11-30 16:27] LABS: Potassium 4.6 mmol/L (3.4-5.1)
[2024-11-30 17:02] LABS: Creatine Kinase 96 U/L (55-170)
[2024-11-30] MEDS: LOSARTAN 50 MG TABLET PO ×2 (17:30→22:04)
[2024-11-30 18:22] LABS: Troponin I 0.042 ng/mL (0.01-0.034)
--- NOTE | 2024-11-30 19:52 | DI.ECHO.S_ITS ---
[facility] : : [address] : : [place] : : [id number] : : Phone: [phone] Echocardiogram Report + + :Name: MONI OWENS Study Date: 12/01/2024 Height: 72 in : :[facility] ReadingLocation: Weight: 298 lb : : Gender: Male BSA: 2.5 m2 : :: 1955 Age: 69 yrs BP: 108/64 mmHg: :Reason For Study: CONGESTIVE HEART FAILURE : :Ordering Physician: RODY, : :JATINDER Performed By: Roxanna Boo : :Referring: JATINDER FINE : + + Interpretation Summary The ejection fraction is estimated to be 50-55%. Septal motion is consistent with post-operative state. There is mild mitral regurgitation. The calculated aortic valve area is 1.2 cm2. The right ventricular systolic pressure is estimated to be at least 28 mmHg based on an estimated right atrial pressure of 3 mm Hg. Procedure: A two-dimensional transthoracic echocardiogram with color flow and Doppler was performed. The study quality was technically adequate. A contrast injection of Definity was performed to improve assessment of LV function. Comparison is made with the echocardiogram of 01/08/2011. The patient was in sinus rhythm with heart rates between 55-65 bpm during the exam. Left Ventricle: The left ventricle is mildly dilated. Left ventricular wall thickness is mildly increased. The ejection fraction is estimated to be 50- 55%. Septal motion is consistent with post-operative state. Right Ventricle: The right ventricle is not well visualized. Atria: The left atrium is mildly dilated. Right atrial size is normal. There is no Doppler evidence for an interatrial shunt. Mitral Valve: The mitral valve leaflets appear mildly thickened, but open well. There is mild mitral regurgitation. Aortic Valve: The aortic valve is trileaflet. The aortic valve opens well. The peak aortic velocity is 2.7 m/sec. The aortic valve mean gradient is 15 mmHg. The calculated aortic valve area is 1.2 cm2. No aortic regurgitation is present. Tricuspid Valve: The tricuspid valve leaflets are thin and pliable. There is trace tricuspid regurgitation. The right ventricular systolic pressure is estimated to be at least 28 mmHg based on an estimated right atrial pressure of 3 mm Hg. Pulmonic Valve: The pulmonic valve leaflets are thin and pliable; valve motion is normal. There is mild pulmonic regurgitation. Great Vessels: The aortic root is normal size. The dimensions of the ascending aorta are normal. The IVC is of normal diameter and collapses greater than 50% with a sniff. This suggests a low right atrial pressure of 3 mm Hg. Pericardium/ Pleura There is no pericardial effusion. There is no pleural effusion. MMode/2D Measurements & Calculations LVIDd: 6.3 cm LVOT diam: 2.4 cm LVIDs: 4.5 cm Ao root diam: 3.2 cm FS: 29.5 % asc Aorta Diam: 3.8 cm EPSS: 1.5 cm Ao Arch Diam (Prox Trans): 3.2 cm IVSd: 1.4 cm LVPWd: 1.0 cm LV barillas. diameter/BSA (cm/m^2): 2.5 LV sys. diameter/BSA (cm/m^2): 1.8 LA A2 area: 28.2 cm2 RA long axis: 5.3 cm LA A4 area: 28.6 cm2 RA area: 22.1 cm2 LA length (vol): 6.7 cm RA vol: 78.8 ml LA vol: 102.5 ml RA : 31.2 ml/m2 LA vol index: 40.6 ml/m2 IVC diam: 1.8 cm Doppler Measurements & Calculations Ao V2 max: 268.9 cm/sec LVOT Max Oumar: 69.3 cm/sec Ao V2 mean: 175.4 cm/sec LV V1 max P.9 mmHg Ao max P.8 mmHg LV V1 VTI: 16.1 cm Ao mean P.9 mmHg INES(I,D): 1.3 cm2 Ao V2 VTI: 55.9 cm INES(V,D): 1.2 cm2 sev ratio: 0.29 INES indexed to BSA (cm^2/m^2): 0.52 MV E max oumar: 78.2 cm/sec TR max oumar: 251.4 cm/sec MV A max oumar: 45.9 cm/sec TR max P.3 mmHg MV E/A: 1.7 PA V2 max: 115.7 cm/sec Med Peak E' Oumar: 6.8 cm/sec PA V2 mean: 77.0 cm/sec E/E' med: 11.4 PA mean P.6 mmHg Lat Peak E' Oumar: 11.5 cm/sec PA pr(Accel): 22.5 mmHg E/E' lat: 6.8 E/e' average: 9.1 MV dec time: 0.24 sec SV(LVOT): 73.0 ml Reading Physician:09:59 AM
--- NOTE | 2024-11-30 19:53 | DI.NM.S_ITS ---
PROCEDURE: NM NATHALY PERF SPECT R&S PHARM Rest and pharmacological stress myocardial perfusion SPECT with gated imaging and ejection fraction RADIOPHARMACEUTICAL: 24.0 mCi Tc-99m tetrafosmin IV at rest and 27.5 mCi Tc-99m tetrafosmin IV at peak effect of pharmacological stress. [id number] was performed. INDICATIONS: r/o ACS TECHNIQUE: Radiopharmaceutical was injected at peak stress test, and also at rest. SPECT images were obtained. SPECT myocardial perfusion images were displayed in short axis, horizontal long axis, and vertical long axis views. Gated images were reviewed using reMail software. COMPARISON: None. CARDIAC STRESS: A pharmacologic stress test was performed under the supervision of an attending staff, using an infusion of lexiscan 0.4mg IV X1. Hemodynamic data: There is normal blood pressure and heart rate response to pharmacologic stress. Symptoms: The patient denied anginal chest pain. Aminophylline: none EKG: No diagnostic changes of ischemia; frequent PVCs at rests. FINDINGS: Raw data: There is good myocardial uptake of radiotracer. No significant motion artifacts. Left ventricle function: Gated images demonstrate mild hypokinesis of the anteroapex. No transient ischemic dilation; TID is 1.07 (normal less than 1.3). Left ventricle resting end diastolic volume is 203mL. Left ventricle stress ejection fraction is 57%; normal range is above 45%. Myocardial perfusion: Mostly fixed severe apical defect that persists on prone imaging, suggesting prior infarct with no significant ischemia. Mostly fixed severe defect in the inferior wall that improves with prone, suggesting artifact but underlying non-transmural infarction can't be excluded. SSS 18, SRS 16. IMPRESSION: Abnormal pharm nuclear stress test. 1) Mostly fixed severe apical defect that persists on prone imaging, suggesting prior infarct with no significant ischemia. Mostly fixed severe defect in the inferior wall that improves with prone, suggesting artifact but underlying non-transmural infarction can't be excluded. SSS 18, SRS 16. 2) Enlarged left ventricle (EDV 203cc) with normal systolic function (EF post stress 57%). Anteroapex is mildly hypokinetic. 3) No diagnostic ST changes with lexiscan. 4) No angina during the study. 5) No prior nuclear stress test available for comparison. Dictated by: Xavier Hendricks MD on 12/07/2024 at 17:03 Approved by: Xavier Hendricks MD on 12/07/2024 at 17:07
[2024-11-30 21:31] LABS: Cholesterol 127 mg/dL (140-199); HDL Cholesterol 41 mg/dL (40-60); LDL Cholesterol Calculated 71 mg/dL (<100); Triglycerides 74 mg/dL (35-150)
[2024-11-30 21:34] LABS: Troponin I 0.046 ng/mL (0.01-0.034)
[2024-11-30 22:02] LABS: Thyroid Stimulating Hormone 2.88 uIU/mL (0.47-4.68)
--- NOTE | 2024-11-30 22:17 | PC.NURSE ---
PATIENT ADMIT, TO ROOM 212, A/O, INDEP ON FEET, DENIES ANY PAIN, TELE PLACED BY HAND CEMENTER. PATIENT ATE SNACK . INFORMED OF PLAN FOR BLOOD DRAWS,ECHO, STRESS TEST. DENIES ANY NEEDS OR WANTS AT THIS TIME. CALL LIGHT WITHIN REACH.
--- NOTE | 2024-11-30 22:18 | PM.HP.1 ---
History of Present Illness History of Present Illness Chief complaint: chest pain, hx of bypass Narrative: 69 years old male with history of coronary artery disease, CABG in 2022, hypertension, hyperlipidemia, brief atrial fibrillation after CABG, obstructive sleep apnea on CPAP, presented to the ER with increased shortness of breath, chest tightness and feet swelling in the last 3 days. Symptoms started around September and were progressively getting worse. He had cold and sinus infection 3 days ago and his symptoms got worse. He also gained around 20 pounds since June 2023. Compliant with his home medications. Denies any PND, orthopnea, fever, cough, palpitations, nausea, vomiting, abdominal pain, diarrhea or dysuria. Follow-up with cardiology. Last seen 1 week ago and there was not any change of his medications in the last several months. He is not on any diuretics. Scheduled to have abdominal ultrasound on Thursday for aortic aneurysm screening. In the ER he was given Tylenol, amlodipine 5 mg, aspirin 325 mg and losartan 50 mg p.o. cardiology was consulted and recommended admitting for echo, stress test to rule out ACS. 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 Smoking Status: Never smoker alcohol intake: never substance use type: does not use Type(s) of exercise: regular exercise Meds Home Medications and Allergies Home Medications Medication Instructions Recorded Confirmed Type losartan 100 mg tablet 50 mg PO BID 11/11/18 11/30/24 History trazodone 100 mg tablet 50 mg PO QPM PRN insmonia 10/18/20 11/30/24 History amlodipine 5 mg tablet 5 mg PO DAILY #30 tabs 01/30/23 11/30/24 Rx acetaminophen 500 mg tablet 1,000 mg PO Q6H PRN Pain, Moderate 06/19/23 11/30/24 History aspirin 81 mg tablet,delayed 81 mg PO DAILY 06/19/23 11/30/24 History release cholecalciferol (vitamin D3) 25 2,000 unit PO DAILY 06/19/23 11/30/24 History mcg (1,000 unit) tablet atorvastatin 40 mg tablet (Lipitor) 80 mg PO QPM 11/30/24 11/30/24 History docosahexaenoic acid (dha)-epa 1 cap PO DAILY 11/30/24 11/30/24 History capsule glucosam-sod chondro-vit C-milagros 1 tab PO DAILY 11/30/24 11/30/24 History tablet magnesium oxide 400 mg (241.3 mg 400 mg PO DAILY 11/30/24 11/30/24 History magnesium) tablet multivit with minerals-iron 18 1 tab PO DAILY 11/30/24 11/30/24 History mg-folic ac 400 mcg-vit K 25 mcg tablet (Adults Multivitamin) Allergies Allergy/AdvReac Type Severity Reaction Status Date / Time amlodipine Allergy Intermediate Verified 11/30/24 17:38 amoxicillin Allergy Intermediate Hives Verified 01/29/23 18:17 Review of Systems Review of Systems ROS: Yes All systems reviewed with the patient and are negative except as otherwise documented Constitutional Constitutional: Reports as per HPI and Reports system reviewed and no additional complaints, except as documented Eyes Eyes: Reports as per HPI and Reports system reviewed and no additional complaints, except as documented ENT Ears, Nose, Mouth, and Throat: Yes as per HPI and Yes system reviewed and no additional complaints, except as documented Cardiovascular Cardiovascular: Reports system reviewed and no additional complaints, except as documented Respiratory Respiratory: Reports system reviewed and no additional complaints, except as documented Gastrointestinal Gastrointestinal: Reports system reviewed and no additional complaints, except as documented Genitourinary Genitourinary: Reports system reviewed and no additional complaints, except as documented Musculoskeletal Musculoskeletal: Reports system reviewed and no additional complaints, except as documented, Reports abnormal gait and Reports numbness Neurologic Neurologic: Reports system reviewed and no additional complaints, except as documented, Reports abnormal gait, Reports confusion and Reports numbness Psychiatric Psychiatric: Reports system reviewed and no additional complaints, except as documented and Reports confusion Exam Vital Signs (past 8 hours): - 11/30/24 15:42 11/30/24 15:52 11/30/24 15:53 Temperature 97.7 F Pulse Rate 64 63 Respiratory Rate 20 Blood Pressure 211/99 H 184/92 H Pulse Oximetry 97 98 Oxygen Delivery Method Room Air Oxygen Flow Rate 11/30/24 15:53 11/30/24 16:00 11/30/24 16:00 Temperature Pulse Rate 63 62 Respiratory Rate 17 Blood Pressure 211/99 H Pulse Oximetry 98 97 Oxygen Delivery Method Oxygen Flow Rate 11/30/24 16:11 11/30/24 16:11 11/30/24 16:30 Temperature Pulse Rate 63 61 Respiratory Rate 15 14 Blood Pressure 176/84 H Pulse Oximetry 98 97 Oxygen Delivery Method Oxygen Flow Rate 11/30/24 16:31 11/30/24 16:31 11/30/24 17:00 Temperature Pulse Rate 60 55 L Respiratory Rate 17 12 Blood Pressure 169/84 H Pulse Oximetry 98 97 Oxygen Delivery Method Oxygen Flow Rate 11/30/24 17:01 11/30/24 17:01 11/30/24 17:30 Temperature Pulse Rate 58 L 59 L Respiratory Rate 24 Blood Pressure 171/105 H 175/100 H Pulse Oximetry 97 Oxygen Delivery Method Room Air Oxygen Flow Rate 11/30/24 17:30 11/30/24 17:30 11/30/24 18:00 Temperature Pulse Rate 53 L Respiratory Rate 15 Blood Pressure 161/86 H 162/94 H Pulse Oximetry 99 Oxygen Delivery Method Oxygen Flow Rate 11/30/24 18:00 11/30/24 18:30 11/30/24 18:30 Temperature Pulse Rate 55 L 54 L 60 Respiratory Rate 13 15 21 Blood Pressure 175/93 H Pulse Oximetry 99 98 99 Oxygen Delivery Method Room Air Oxygen Flow Rate 11/30/24 19:00 11/30/24 19:01 11/30/24 19:01 Temperature Pulse Rate 58 L 58 L Respiratory Rate 14 14 Blood Pressure 165/89 H Pulse Oximetry 99 99 Oxygen Delivery Method Oxygen Flow Rate 11/30/24 19:29 11/30/24 19:29 11/30/24 19:30 Temperature Pulse Rate 58 L Respiratory Rate 21 Blood Pressure 177/82 H 164/79 H Pulse Oximetry 98 Oxygen Delivery Method Room Air Oxygen Flow Rate 11/30/24 19:30 11/30/24 20:00 11/30/24 20:01 Temperature Pulse Rate 58 L 57 L Respiratory Rate 20 17 Blood Pressure 145/79 H Pulse Oximetry 99 96 Oxygen Delivery Method Oxygen Flow Rate 11/30/24 20:01 11/30/24 20:52 11/30/24 22:04 Temperature 97.7 F Pulse Rate 58 L 60 68 Respiratory Rate 17 19 Blood Pressure 172/100 H 138/88 Pulse Oximetry 96 96 Oxygen Delivery Method Oxygen Flow Rate 0 Oxygen Delivery Method Room Air Oxygen Flow Rate 0 Const General: cooperative, comfortable and well developed Orientation: alert and oriented x3 [facility] Head: normal to inspection, normocephalic and atraumatic Face and sinus: normal facial exam Mouth: oral mucosae normal and moist mucous membranes Throat: posterior oropharynx normal Eyes General: appearance normal, both eyes and all related structures Pupils: PERRL EOM: EOM intact bilaterally Neck Neck: normal visual inspection and full ROM Chest Chest: normal inspection of the chest Resp Effort & Inspection: normal respiratory effort and able to speak in complete sentences Auscultation: clear to auscultation bilaterally Cardio Palpation: normal PMI Rate: regular rate Rhythm: regular rhythm Heart Sounds: S1 normal and S2 normal GI Inspection: normal to inspection Palpation: soft and no hepatosplenomegaly Auscultation: normal bowel sounds Skin General: no rashes or lesions noted Lesions: no lesions Rashes: no rashes Trauma: no lacerations or abrasions Neuro General: patient alert, patient awake, patient oriented x3 and no focal motor deficits Cranial Nerves: CN's II-XI intact bilaterally Cognition: normal cognition Speech: speech normal Gait: normal gait Motor: muscle tone normal throughout Sensory Exam: no sensory deficits noted Extrem General: full ROM and no calf tenderness Psych Appearance: grossly normal Mental Status: mental status grossly normal Speech and Movement: speech and movement normal Objective Labs 11/30/24 15:49 11/30/24 15:49 Labs: Laboratory Results - last 24 hr 11/30/24 11/30/24 11/30/24 15:49 17:49 21:03 WBC 6.7 RBC 5.27 Hgb 15.9 Hct 47.7 MCV 90.5 MCH 30.1 MCHC 33.2 RDW 14.4 Plt Count 142 L Neut % (Auto) 67.9 Lymph % (Auto) 19.5 L [place] % (Auto) 9.6 Eos % (Auto) 2.4 Baso % (Auto) 0.6 Neut # (Auto) 4600 Lymph # (Auto) 1300 [place] # (Auto) 600 Eos # (Auto) 200 Baso # (Auto) 0 PT 12.3 INR 1.1 APTT 35 Sodium 140 Potassium 4.6 Chloride 107 Carbon Dioxide 25 BUN 21 H Creatinine 0.78 Estimated GFR > 60 BUN/Creatinine Ratio 26.9 H Glucose 87 Calcium 9.4 Magnesium 1.9 Total Bilirubin 2.2 H AST 44 ALT 34 Alkaline Phosphatase 73 Total Creatine Kinase 96 Troponin I 0.045 H 0.042 H 0.046 H NT-Pro-B Natriuret Pep 288 H Total Protein 7.1 Albumin 4.6 Globulin 2.5 Albumin/Globulin Ratio 1.8 Triglycerides 74 Cholesterol 127 L LDL Cholesterol, Calc 71 HDL Cholesterol 41 Lipase 71 TSH 2.88 Assessment & Plan Assessment & Plan narrative: Acute diastolic heart failure. rule out ACS. -Monitor I and O; daily standing weight; -diuresis with Lasix as BP can tolerate. -check BNP and repeat in 48 hours; low sodium diet -Monitor effectiveness of diuresis. Monitor renal function. -keep potassium> 4 and magnesium> 2 -Telemetry monitoring -serial troponins, Echo -Cardiac stress test in the morning -Resume ARB -Supplemental O2 as needed, goal SpO2> 90% -Cardiology consult Hyperlipidemia. Restart Lipitor and check lipids. CAD. Restart aspirin and statins. Nitroglycerin as needed. Hypertension. Restart amlodipine and losartan. Hydralazine as needed. Insomnia. Restart trazodone nightly as needed Time-Based Coding :: [TOTAL MINUTES] spent with patient and on the chart (including review of chart, obtaining history, exam, reviewing outside data, placing orders, documenting exam and treatment plan, and counseling patient) on [DATE]. Quality VTE Deep Vein Thrombosis/Pulmonary Embolism Present on Admission: No MIPS - Admit I confirm the patient?s Advance Care Plan is present, Code status is documented, Surrogate decision maker is in patient?s record [If Yes, STOP here]: Yes MIPS - Meds 'Current medications' to include all prescriptions, [id number] products, herbals, cannabis/cannabidiol products, and vitamin/mineral/dietary (nutritional) supplements. I have utilized all available resources to obtain, update, or review the patient?s current medications. [If Yes, STOP here]: Yes
[2024-11-30 22:27] LABS: Appearance Urine UA CLEAR; Bilirubin Urine UA NEGATIVE (NEGATIVE); Color Urine UA YELLOW; Glucose Urine UA NEGATIVE (Negative); Ketones Urine UA NEGATIVE (NEGATIVE); Leukocyte Esterase Urine UA NEGATIVE (NEGATIVE); Nitrite Urine UA NEGATIVE (Negative); Occult Blood Urine UA TRACE-INTACT (Negative); Protein Urine UA NEGATIVE (Negative); Specific Gravity Urine UA 1.015 (1.000-1.035)
[2024-11-30 22:39] LABS: Bacteria Urine None Seen; Culture Indicated Urine Cult Not Indicated; RBC Urine 0-1/HPF (0-5/HPF); Squamous Epithelial Cell Urine 0-1 /HPF (0-5/HPF); Urine Volume 10mL (spun); WBC Urine None Seen (0-5/HPF)
[2024-11-30] MEDS: FUROSEMIDE 40 MG/4 ML VIAL IV (23:38)
[2024-11-30] MEDS: SODIUM CHLORIDE 0.9% FLUSH 10 ML IV (23:38)
--- NOTE | 2024-11-30 23:50 | CM.MNRNOTE ---
Patient awake Furosemide 40 mg IVP administered, Reassessed chest pain & chest pressure he states it's all gone no CP or chest pressure Will moniitor & continue plan of care.
[2024-12-01] VITALS (7 sets, daily range): BP systolic 105–146; BP diastolic 64–81; PULSE 57–82; RESP 15–19; TEMP 36.6–36.8; O2SAT 95–99
[2024-12-01 02:30] LABS: Troponin I 0.034 ng/mL (0.01-0.034)
--- NOTE | 2024-12-01 07:28 | PM.PN.1 ---
Subjective Subjective Date Patient Seen: 12/01/24 Interval history: He is seen today to follow-up his coronary artery disease and chest discomfort. He is scheduled for a 2 day protocol NM cardiac stress test. The BNP was 288. The troponin dropped to 0.034. The EKG shows right bundle branch block. The chest x-ray is normal. The bilirubin is 2.2. The BMP and CBC are normal. He tells me that he lives on [facility] and that his PCP is Dr. Pham. Exam Vital Signs (past 8 hours): - 12/01/24 01:21 12/01/24 05:21 Temperature 97.8 F 98.2 F Pulse Rate 60 82 Respiratory Rate 16 19 Blood Pressure 108/64 118/68 Pulse Oximetry 95 97 Oxygen Flow Rate 0 Oxygen Delivery Method Room Air Oxygen Flow Rate 0 Narrative Exam Narrative: Alert and oriented x3. No apparent distress. He is very informative and historically helpful. He does say ?I do not have a heart problem, it's just the arteries around my heart. Heart is regular rate and rhythm without murmur Lungs are clear to auscultation bilateral Extremities have no ankle edema Objective Labs 11/30/24 15:49 12/01/24 01:59 Labs: Laboratory Results - last 24 hr 11/30/24 11/30/24 11/30/24 15:49 17:49 21:03 WBC 6.7 RBC 5.27 Hgb 15.9 Hct 47.7 MCV 90.5 MCH 30.1 MCHC 33.2 RDW 14.4 Plt Count 142 L Neut % (Auto) 67.9 Lymph % (Auto) 19.5 L [place] % (Auto) 9.6 Eos % (Auto) 2.4 Baso % (Auto) 0.6 Neut # (Auto) 4600 Lymph # (Auto) 1300 [place] # (Auto) 600 Eos # (Auto) 200 Baso # (Auto) 0 PT 12.3 INR 1.1 APTT 35 Sodium 140 Potassium 4.6 Chloride 107 Carbon Dioxide 25 BUN 21 H Creatinine 0.78 Estimated GFR > 60 BUN/Creatinine Ratio 26.9 H Glucose 87 Calcium 9.4 Magnesium 1.9 Total Bilirubin 2.2 H AST 44 ALT 34 Alkaline Phosphatase 73 Total Creatine Kinase 96 Troponin I 0.045 H 0.042 H 0.046 H NT-Pro-B Natriuret Pep 288 H Total Protein 7.1 Albumin 4.6 Globulin 2.5 Albumin/Globulin Ratio 1.8 Triglycerides 74 Cholesterol 127 L LDL Cholesterol, Calc 71 HDL Cholesterol 41 Lipase 71 TSH 2.88 Urine Color Urine Appearance Urine pH Ur Specific [place] Urine Protein Urine Glucose (UA) Urine Ketones Urine Occult Blood Urine Nitrate Urine Bilirubin Urine Urobilinogen Ur Leukocyte Esterase Urine RBC Urine WBC Ur Squamous Epith Cells Urine Bacteria Ur Culture Indicated? Vol Urine Centrifuged 11/30/24 12/01/24 21:19 01:55 WBC RBC Hgb Hct MCV MCH MCHC RDW Plt Count Neut % (Auto) Lymph % (Auto) [place] % (Auto) Eos % (Auto) Baso % (Auto) Neut # (Auto) Lymph # (Auto) [place] # (Auto) Eos # (Auto) Baso # (Auto) PT INR APTT Sodium Potassium Chloride Carbon Dioxide BUN Creatinine Estimated GFR BUN/Creatinine Ratio Glucose Calcium Magnesium Total Bilirubin AST ALT Alkaline Phosphatase Total Creatine Kinase Troponin I 0.034 NT-Pro-B Natriuret Pep Total Protein Albumin Globulin Albumin/Globulin Ratio Triglycerides Cholesterol LDL Cholesterol, Calc HDL Cholesterol Lipase TSH Urine Color Yellow Urine Appearance Clear Urine pH 7.0 Ur Specific [place] 1.015 Urine Protein Negative Urine Glucose (UA) Negative Urine Ketones Negative Urine Occult Blood Trace-intact Urine Nitrate Negative Urine Bilirubin Negative Urine Urobilinogen 4.0 H Ur Leukocyte Esterase Negative Urine RBC 0-1/hpf Urine WBC None seen Ur Squamous Epith Cells 0-1 /hpf Urine Bacteria None seen Ur Culture Indicated? 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 Rule out ACS. -Monitor I and O; daily standing weight; -diuresis with Lasix as BP can tolerate. -check BNP and repeat in 48 hours; low sodium diet -Monitor effectiveness of diuresis. Monitor renal function. -keep potassium> 4 and magnesium> 2 -Telemetry monitoring -serial troponins, Echo -2 day protocol Cardiac stress test. -Resume ARB -Supplemental O2 as needed, goal SpO2> 90% Hyperlipidemia. Lipitor and check lipids. CAD. Aspirin and Atorvastatin. Nitroglycerin as needed. Hypertension. Amlodipine and losartan. Hydralazine as needed. Insomnia. Trazodone nightly as needed Time-Based Coding :: [TOTAL MINUTES] spent with patient and on the chart (including review of chart, obtaining history, exam, reviewing outside data, placing orders, documenting exam and treatment plan, and counseling patient) on [DATE]. Quality VTE Deep Vein Thrombosis/Pulmonary Embolism Present on Admission: No
[2024-12-01 08:17] LABS: BUN Creatinine Ratio 27.4 (6-22); Blood Urea Nitrogen 20 mg/dL (9-20); Calcium 9.3 mg/dL (8.4-10.2); Carbon Dioxide 25 mmol/L (22-32); Chloride 107 mmol/L (98-107); Estimated Glomerular Filt Rate > 60 mL/min (>60); Glucose 117 mg/dL (80-110); HEMOLYSIS < 15 (0-50); Potassium 3.7 mmol/L (3.4-5.1); Sodium 138 mmol/L (137-145)
[2024-12-01 08:26] LABS: NT-proBNP (BNP-Adult 18+) 363 pg/mL (<125)
[2024-12-01] MEDS: SODIUM CHLORIDE 0.9% FLUSH 10 ML IV ×2 (09:00→20:45)
[2024-12-01 09:02] LABS: Troponin I 0.036 ng/mL (0.01-0.034)
[2024-12-01] MEDS: ASPIRIN EC 81 MG TABLET PO (09:37)
[2024-12-01] MEDS: CHOLECALCIFEROL (VITAMIN D3) 1,000 UNIT TABLET 2000 UNIT PO (09:37)
[2024-12-01] MEDS: LOSARTAN 50 MG TABLET PO ×2 (09:38→20:45)
[2024-12-01] MEDS: MAGNESIUM OXIDE 400 MG TABLET PO (09:39)
[2024-12-01] MEDS: MULTIVITAMIN 1 TABLET 1 TAB PO (09:39)
--- NOTE | 2024-12-01 11:12 | PT.IIE ---
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 3 steps and right rail ascend to enter home Home Environment High Toilet,Walk in Shower Home Equipment Shower Seat without Backrest, Hand Held Shower,Grab Bars Near Toilet,Grab Bars In Shower Employment Status Retired M2 PT-IP Current Condition Start: 12/01/24 07:58 Freq: NEEDED Status: Active Protocol: Document 12/01/24 11:02 MB (Rec: 12/01/24 11:12 MB [id number]) Physical Therapy Current Condition Current Condition Evaluation Date 12/01/24 Treatment Diagnosis CP, increased troponin trending downward M3 PT-IP Subjective Start: 12/01/24 07:58 Freq: NEEDED Status: Active Protocol: Document 12/01/24 11:02 MB (Rec: 12/01/24 11:12 MB [id number]) Subjective Physical Therapy Visit Type Type Initial Evaluation Visit Start Time 11:02 Visit Stop Time 11:09 Number of MEDICAL MALPRACTICE PARALEGAL Visits 0 Physical Therapy Visit Comments Patient Comments Pt states he is feeling a lot better. Therapy Pain Assessment Pain When Pain Assessed During Mobility Pain Present Pain Present Denied Pain M4 PT-IP Mobility and Gait Start: 12/01/24 07:58 Freq: NEEDED Status: Active Protocol: Document 12/01/24 11:02 MB (Rec: 12/01/24 11:12 MB [id number]) PT-Transfer Assessment Sit to and From Stand Sit to and from Stand Independent Equipment Transfer Assistive Device None Orthotic/Prosthetic Devices or Brace: No Transfers Transfer Destination Wheelchair Transfer Technique Ambulation Transfer Ability Level of Assist Independent Comments Mobility Comments Transporter arrives after gait to take pt down for testing and so PT cannot get BP or have pt try bed mobility and he reports that he is I Gait Assessment Gait Gait Assistance Required: Independent Distance (Feet) 150 Able to Maintain Weight Bearing Status Yes During Gait Assistive Devices Assistive Device None Orthotic/Prosthetic Devices or Brace: No Gait Deviations General Gait Pattern Within Normal Limits,Wide Based Gait Stair Climbing Assessment Evaluation Level of Assist On Stairs Independent Technique/Endurance Stair Climbing Direction Ascend and Descend Stair Climbing Technique Step Over Step Number of Steps Climbed 3 Query Text: Stair Climbing Set # Repetitions (reps) 1 Comments Stair Climbing Comments Right rail ascend PT-Balance Assessment Sitting Balance and Reactions Static Sitting Balance Ability Normal Dynamic Sitting Balance Ability Normal Standing Balance and Reactions Static Standing Balance Ability Normal Dynamic Standing Balance Ability Normal M5 PT-IP Objective Assessments Start: 12/01/24 07:58 Freq: NEEDED Status: Active Protocol: Document 12/01/24 11:02 MB (Rec: 12/01/24 11:12 [id number]) Orientation Orientation/Cognition Level of Alertness Alert Orientation Name,Age,Birthday,Month,Date, Year,Place,Situation Language Function Ability No Deficits Noted Safety Awareness Understands Safety Issues Memory Description No Deficits Noted Gross Range of Motion Upper Extremity ROM Assessment Within Functional Limits Lower Extremity ROM Assessment Within Functional Limits Strength Upper Extremity Strength Assessment Within Functional Limits Lower Extremity Strength Assessment Within Functional Limits Coordination Assessment Assessment Coordination Comments NT Sensation Assessment Sensation Gross Sensation WNL Muscle Tone Muscle Tone WNL Yes M7 PT-IP Assessment and Plan Start: 12/01/24 07:58 Freq: NEEDED Status: Active Protocol: Document 12/01/24 11:02 MB (Rec: 12/01/24 11:12 [id number]) PT Summary Assessment and Plan Potential Rehabilitation Potential Good Status of Condition at Evaluation Evolving Summary Progress Towards Goals Safe For Discharge Assessment Summary Pt is a 69 y/o male who reports no chest tightness or pain today and that he is feeling well. He is I with mobility with PT today. No further acute skilled PT needs , will d/c PT. Frequency of Treatment Frequency Of Treatment Discharge Recommendations To Nursing Amount of Assist Needed Independent Discharge Recommendations PT Discharge Recommendations Home Transportation Needs at Discharge Private Vehicle
--- NOTE | 2024-12-01 12:14 | PC.NURSE ---
Pt up independent. offers no overt c/o. discussing days plan. Stress test today at 11:15. Pt should be returning to the floor shortly. Will be NPO at [place] for part two of stress test tomorrow.
[2024-12-01] MEDS: FUROSEMIDE 40 MG/4 ML VIAL IV (13:04)
--- NOTE | 2024-12-01 13:47 | CM.DANOTE ---
Initial DCP Assessment Note Pt is a 69 yo male, resident of [place], presents with chest pain, history of coronary artery disease, admitted for echo, stress test. PCP: Sumanth Pham Payer: [facility] MCR Reviewed chart, pt discussed in multidisciplinary rounds this morning. KALEY 12/02. Patient lives independently with spouse whom he cares for d/t a stroke. Patient is expected to be discharged back home when medically cleared and is at his functional and cognitive baseline. No barriers identified at this time to patient's safe discharge home w/ close outpatient f/u. CM team will plan to follow clinical course closely in case any DC needs or concerns arise. KASSIDY Egan Discharge Planning/Care Management CM Discharge Assessment Start: 12/01/24 13:39 Freq: Status: Active Protocol: Document 12/01/24 13:40 KATHRINE (Rec: 12/01/24 13:47 [id number]) Discharge Planning Assessment Assigned Grade Tamper KASSIDY Whitmore DPOA/Assigned Designee Name Aria De La Rosa, spouse Contact Information [phone] Advance Directives? No History Provided By Patient,Medical Record Prior Living Arrangements House Household Members spouse Type of transporation used prior to Drives own vehicle admit Independent with ADL's Yes Is patient alert and oriented? Yes Caregiver for Another Yes: Caring for spouse Barriers to Discharge No Discharge Plan Home Transportation Arrangement Family Referrals Initiated None needed
[2024-12-01] MEDS: ATORVASTATIN 20 MG TABLET 80 MG PO (20:45)
[2024-12-01] MEDS: TRAZODONE 50 MG TABLET PO (20:45)
[2024-12-02] VITALS (9 sets, daily range): BP systolic 103–134; BP diastolic 59–87; PULSE 52–65; RESP 11–18; TEMP 36.1–36.6; O2SAT 95–98
[2024-12-02] MEDS: FUROSEMIDE 40 MG/4 ML VIAL IV ×3 (00:18→22:58)
--- NOTE | 2024-12-02 07:33 | P.DS_ITS ---
History of Present Illness History of Present Illness Date Patient Seen: 12/02/24 Chief complaint: chest pain, hx of bypass Narrative: 69 years old male with history of coronary artery disease, CABG in 2022, hypertension, hyperlipidemia, brief atrial fibrillation after CABG, obstructive sleep apnea on CPAP, presented to the ER with increased shortness of breath, chest tightness and feet swelling in the last 3 days. Symptoms started around September and were progressively getting worse. He had cold and sinus infection 3 days ago and his symptoms got worse. He also gained around 20 pounds since June 2023. Compliant with his home medications. Denies any PND, orthopnea, fever, cough, palpitations, nausea, vomiting, abdominal pain, diarrhea or dysuria. Follow-up with cardiology. Last seen 1 week ago and there was not any change of his medications in the last several months. He is not on any diuretics. Scheduled to have abdominal ultrasound on Thursday for aortic aneurysm screening. In the ER he was given Tylenol, amlodipine 5 mg, aspirin 325 mg and losartan 50 mg p.o. cardiology was consulted and recommended admitting for echo, stress test to rule out ACS. Discharge Providers Provider Date of admission: 11/30/24 19:45 Discharge Date: 12/02/24 Primary care physician: Sumanth Pham MD Consults: 11/30/24 19:52 Consult to Physical Therapy Evaluate & Treat Comment: Physician Instructions: Evaluate and Treat Discharge provider: Josie Velazco MD Summary Hospital Course Discharge Diagnosis: Acute diastolic heart failure. Rule out ACS. -diuresis with Lasix as BP can tolerate. -Telemetry monitoring -serial troponins, Echo The ejection fraction is estimated to be 50-55%. Septal motion is consistent with post-operative state. There is mild mitral regurgitation. The calculated aortic valve area is 1.2 cm2 -2 day protocol Cardiac stress test is abnormal with prior inferior wall infarct suggesting RCA lesions. Hyperlipidemia. Lipitor and check lipids. CAD. Aspirin and Atorvastatin. Nitroglycerin as needed. Hypertension. Amlodipine and losartan. Hydralazine as needed. Insomnia. Trazodone nightly as needed Hospital Course: He was admitted with 3 days of chest pressure and shortness of breath. His troponin was 0.046 and then down to 0.036. The BNP was mildly elevated. The echocardiogram was notable for mild mitral regurgitation and normal ejection fraction/left ventricular function. The chest x-ray was normal. The two day cardiac scan was read as grossly abnormal with evidence of prior infarct in the inferior wall area consistent with prior right coronary artery obstruction. This probably goes back to when he had his CABG done although he emphatically insists that he has never had a heart attack, does not have heart problems and only had ?blockages to the arteries around his heart. Dr. Dueñasal his commended transfer for Cardiology evaluation and potential repeat heart catheterization due to the elevated troponin, the type of symptoms bringing him to the hospital and the history of coronary disease along with the current scan report. His cardiology treatment has all been in [place] so he will be referred there. Status at Discharge Cognitive/behavioral status at discharge: at baseline, oriented Functional status at discharge: independent ambulation Overall status at discharge: patient is back to baseline Exam Vital Signs (past 8 hours): - 12/02/24 00:00 12/02/24 06:00 Temperature 97.7 F 97.6 F Pulse Rate 55 L 60 Respiratory Rate 18 16 Blood Pressure 103/71 132/83 Pulse Oximetry 97 98 Oxygen Flow Rate 0 Oxygen Delivery Method Room Air Oxygen Flow Rate 0 Narrative Exam Narrative: Heart is regular rate and rhythm without murmur Lungs are clear to auscultation bilaterally There is no ankle edema He is alert and oriented x3 and in no apparent distress. Objective Labs 11/30/24 15:49 12/02/24 09:35 Labs: Laboratory Results - last 24 hr 12/01/24 12/01/24 01:59 08:18 Sodium 138 Potassium 3.7 Chloride 107 Carbon Dioxide 25 BUN 20 Creatinine 0.73 Estimated GFR > 60 BUN/Creatinine Ratio 27.4 H Glucose 117 H Calcium 9.3 Magnesium 2.0 Troponin I 0.036 H NT-Pro-B Natriuret Pep 363 H [facility] Medical History (Updated 11/30/24 @ 19:47 by Mitzi Hernandez DO) Hypertension Morbid obesity with BMI of 40.0-44.9, adult Obstructive sleep apnea of adult Primary insomnia Snoring Social History marital status: household members: spouse 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 history: 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 Diet/Activity/Treatments Diet: Nothing by Mouth Discharge Data Primary Care Provider: Sumanth Pham VTE Deep Vein Thrombosis/Pulmonary Embolism Present on Admission: No
[2024-12-02] MEDS: ASPIRIN EC 81 MG TABLET PO (09:23)
[2024-12-02] MEDS: MULTIVITAMIN 1 TABLET 1 TAB PO (09:23)
[2024-12-02] MEDS: MAGNESIUM OXIDE 400 MG TABLET PO (09:23)
[2024-12-02] MEDS: LOSARTAN 50 MG TABLET PO ×2 (09:23→20:29)
[2024-12-02] MEDS: CHOLECALCIFEROL (VITAMIN D3) 1,000 UNIT TABLET 2000 UNIT PO (09:25)
[2024-12-02] MEDS: SODIUM CHLORIDE 0.9% FLUSH 10 ML IV ×2 (09:26→20:46)
[2024-12-02 10:01] LABS: BUN Creatinine Ratio 27.8 (6-22); Blood Urea Nitrogen 27 mg/dL (9-20); Calcium 9.7 mg/dL (8.4-10.2); Carbon Dioxide 31 mmol/L (22-32); Chloride 105 mmol/L (98-107); Estimated Glomerular Filt Rate > 60 mL/min (>60); Glucose 142 mg/dL (80-110); HEMOLYSIS < 15 (0-50); Magnesium 2.1 mg/dL (1.6-2.3); Potassium 4.1 mmol/L (3.4-5.1); Sodium 142 mmol/L (137-145)
[2024-12-02 10:10] LABS: NT-proBNP (BNP-Adult 18+) 135 pg/mL (<125)
--- NOTE | 2024-12-02 11:27 | CM.DPNOTE ---
Addendum entered by KASSIDY Brody 12/02/24 15:36: per nursing staff, new results/input from coroner's juror rec transfer for heart cath. working on transfer to [facility], pending bed availability. SL Original Note: DCP Note JUNIOR BRAND MANAGER reviewed EMR Per hospitalist in morning rounds, anticipate home today no CM needs. Per RN, no needs from CM team. P: dc home with spouse and OP f/u recommended. no identified barriers to safe dc home at this time. CM team will follow as needed KASSIDY Brody
[2024-12-02] MEDS: ATORVASTATIN 20 MG TABLET 80 MG PO (20:29)
[2024-12-02] MEDS: TRAZODONE 50 MG TABLET PO (20:29)
--- NOTE | 2024-12-02 23:31 | PC.NURSE ---
Addendum entered by Ricky Ignacio R.N. 12/03/24 06:51: up in chair this morning, denies CP,discomfort. HR 60s,regular. call light within reach, encouraged to call for assistance. per acrobatic dancer, still pending transfer to [place], pt aware. Original Note: received pt at 1930, up in chair, alert,oriented, calm, cooperative. denies chest pain,discomfort,palpitations,dizziness. pt reports shortness of breath with exertion, has been ongoing for a while. 02 sats >90% on room air, breathing unlabored, denies cough. apical pulse regularly irregular, trace edema BLE. HR drops to high 40s, nonsustaining, denies sx. encouraged pt to call for assistance before transfers/mobility, bed alarm in place. all due meds given, CPAP on, call light within easy reach. 2300 pt in bed, denies s/sx. Vitals stable, IV lasix given as ordered, urinal placed at bedside, strict I&Os
[2024-12-03] VITALS (7 sets, daily range): BP systolic 112–126; BP diastolic 71–81; PULSE 58–70; RESP 16–19; TEMP 36.2–36.9; O2SAT 97–99
--- NOTE | 2024-12-03 07:23 | PM.PN.1 ---
Subjective Subjective Date Patient Seen: 12/03/24 Interval history: He is seen today to follow-up his coronary disease, chest pain and elevated troponin. His NM cardiac stress test showed evidence of prior infarct in the right coronary distribution across the inferior heart. This is likely unchanged from before his CABG? We do not have the records to confirm that but he has been referred up to his cardiology hospital in [place] and is waiting for a bed for potential repeat heart catheterization per Dr. Mondragon's recommendation. Exam Vital Signs (past 8 hours): - 12/03/24 04:07 Temperature 97.6 F Pulse Rate 58 L Respiratory Rate 16 Blood Pressure 112/81 Pulse Oximetry 98 Oxygen Flow Rate 0 Oxygen Delivery Method Room Air Oxygen Flow Rate 0 Narrative Exam Narrative: Alert and oriented x3. No apparent distress. Sitting in the bed by the chair. Asking to resume his dietary intake since he does not seem to need to be NPO for procedure today. Heart is regular rate and rhythm without murmur Lungs are clear to auscultation bilaterally Extremities have no ankle edema Objective Labs 11/30/24 15:49 12/03/24 07:05 Labs: Laboratory Results - last 24 hr 12/02/24 09:35 Sodium 142 Potassium 4.1 Chloride 105 Carbon Dioxide 31 BUN 27 H Creatinine 0.97 Estimated GFR > 60 BUN/Creatinine Ratio 27.8 H Glucose 142 H Calcium 9.7 Magnesium 2.1 NT-Pro-B Natriuret Pep 135 H PFSH Medical History (Updated 11/30/24 @ 19:47 by Mitzi Hernandez DO) Hypertension Morbid obesity with BMI of 40.0-44.9, adult Obstructive sleep apnea of adult Primary insomnia Snoring Social History marital status: household members: spouse 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 history: 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 Rule out ACS. -diuresed with Lasix. Stop Lasix on 12/03/24 -Telemetry monitoring -see plan discussed below. The ejection fraction is estimated to be 50-55%. Septal motion is consistent with post-operative state. There is mild mitral regurgitation. The calculated aortic valve area is 1.2 cm2 -2 day protocol Cardiac stress test is abnormal with prior inferior wall infarct suggesting RCA lesions. Hyperlipidemia. Lipitor and check lipids. CAD. Aspirin and Atorvastatin. Nitroglycerin as needed. Hypertension. Amlodipine and losartan. Hydralazine as needed. Insomnia. Trazodone nightly as needed Hospital Course: He was admitted with 3 days of chest pressure and shortness of breath. His troponin was 0.046 and then down to 0.036. The BNP was mildly elevated. The echocardiogram was notable for mild mitral regurgitation and normal ejection fraction/left ventricular function. The chest x-ray was normal. The two day cardiac scan was read as grossly abnormal with evidence of prior infarct in the inferior wall area consistent with prior right coronary artery obstruction. This probably goes back to when he had his CABG done although he emphatically insists that he has never had a heart attack, does not have heart problems and only had ?blockages to the arteries around his heart. Dr. Mondragon has commended transfer for Cardiology evaluation and potential repeat heart catheterization due to the elevated troponin, the type of symptoms bringing him to the hospital and the history of coronary disease along with the current scan report. His cardiology treatment has all been in [place] so he will be referred there. No beds were available yesterday and their crime laboratory analyst is offline for one day so he is likely to go up there tomorrow. Despite clearing of symptoms the strong rec. from cardiology is to send him for further evaluation instead of allowing him to go home and do the next evaluation/testing at a later date. Time-Based Coding :: [TOTAL MINUTES] spent with patient and on the chart (including review of chart, obtaining history, exam, reviewing outside data, placing orders, documenting exam and treatment plan, and counseling patient) on [DATE]. Quality VTE Deep Vein Thrombosis/Pulmonary Embolism Present on Admission: No
[2024-12-03 07:47] LABS: BUN Creatinine Ratio 32.2 (6-22); Blood Urea Nitrogen 29 mg/dL (9-20); Calcium 9.4 mg/dL (8.4-10.2); Carbon Dioxide 29 mmol/L (22-32); Chloride 106 mmol/L (98-107); Estimated Glomerular Filt Rate > 60 mL/min (>60); Glucose 95 mg/dL (80-110); HEMOLYSIS 44 (0-50); Magnesium 2.1 mg/dL (1.6-2.3); Sodium 140 mmol/L (137-145)
[2024-12-03 07:57] LABS: NT-proBNP (BNP-Adult 18+) 72 pg/mL (<125)
[2024-12-03] MEDS: LOSARTAN 50 MG TABLET PO ×2 (08:13→20:29)
[2024-12-03] MEDS: MULTIVITAMIN 1 TABLET 1 TAB PO (08:14)
[2024-12-03] MEDS: ASPIRIN EC 81 MG TABLET PO (08:14)
[2024-12-03] MEDS: MAGNESIUM OXIDE 400 MG TABLET PO (08:14)
[2024-12-03] MEDS: CHOLECALCIFEROL (VITAMIN D3) 1,000 UNIT TABLET 2000 UNIT PO (08:15)
[2024-12-03] MEDS: AMLODIPINE 5 MG TABLET PO (08:15)
[2024-12-03] MEDS: SODIUM CHLORIDE 0.9% FLUSH 10 ML IV ×2 (08:17→20:30)
[2024-12-03] MEDS: TRAZODONE 50 MG TABLET PO (20:29)
[2024-12-03] MEDS: ATORVASTATIN 20 MG TABLET 80 MG PO (20:31)
[2024-12-04] VITALS (8 sets, daily range): BP systolic 109–146; BP diastolic 77–89; PULSE 54–67; RESP 12–20; TEMP 36.3–36.6; O2SAT 93–98
--- NOTE | 2024-12-04 07:47 | PM.DS.1 ---
History of Present Illness History of Present Illness Chief complaint: chest pain, hx of bypass Narrative: 69 years old male with history of coronary artery disease, CABG in 2022, hypertension, hyperlipidemia, brief atrial fibrillation after CABG, obstructive sleep apnea on CPAP, presented to the ER with increased shortness of breath, chest tightness and feet swelling in the last 3 days. Symptoms started around September and were progressively getting worse. He had cold and sinus infection 3 days ago and his symptoms got worse. He also gained around 20 pounds since June 2023. Compliant with his home medications. Denies any PND, orthopnea, fever, cough, palpitations, nausea, vomiting, abdominal pain, diarrhea or dysuria. Follow-up with cardiology. Last seen 1 week ago and there was not any change of his medications in the last several months. He is not on any diuretics. Scheduled to have abdominal ultrasound on Thursday for aortic aneurysm screening. In the ER he was given Tylenol, amlodipine 5 mg, aspirin 325 mg and losartan 50 mg p.o. cardiology was consulted and recommended admitting for echo, stress test to rule out ACS. Discharge Providers Provider Date of admission: 11/30/24 19:45 Primary care physician: Sumanth Pham MD Consults: 11/30/24 19:52 Consult to Physical Therapy Evaluate & Treat Comment: Physician Instructions: Evaluate and Treat Discharge provider: Josie Velazco MD Summary Hospital Course Discharge Diagnosis: Acute diastolic heart failure. Rule out ACS. -diuresed with Lasix. Stop Lasix on 12/03/24 -Telemetry monitoring -see plan discussed below. The ejection fraction is estimated to be 50-55%. Septal motion is consistent with post-operative state. There is mild mitral regurgitation. The calculated aortic valve area is 1.2 cm2 -2 day protocol Cardiac stress test is abnormal with prior inferior wall infarct suggesting RCA lesions. Hyperlipidemia. Lipitor and check lipids. CAD. Aspirin and Atorvastatin. Nitroglycerin as needed. Hypertension. Amlodipine and losartan. Hydralazine as needed. Insomnia. Trazodone nightly as needed Hospital Course: He was admitted with 3 days of chest pressure and shortness of breath. His troponin was 0.046 and then down to 0.036. The BNP was mildly elevated. The echocardiogram was notable for mild mitral regurgitation and normal ejection fraction/left ventricular function. The chest x-ray was normal. The two day cardiac scan was read as grossly abnormal with evidence of prior infarct in the inferior wall area consistent with prior right coronary artery obstruction. This probably goes back to when he had his CABG done although he emphatically insists that he has never had a heart attack, does not have heart problems and only had ?blockages to the arteries around his heart. Dr. Mondragon has commended transfer for Cardiology evaluation and potential repeat heart catheterization due to the elevated troponin, the type of symptoms bringing him to the hospital and the history of coronary disease along with the current scan report. His cardiology treatment has all been in [place] so he will be referred there. No beds were available yesterday and their labelling machine operator is offline for one day so he is likely to go up there tomorrow. Despite clearing of symptoms the strong rec. from cardiology is to send him for further evaluation instead of allowing him to go home and do the next evaluation/testing at a later date. Exam Vital Signs (past 8 hours): - 12/04/24 00:00 12/04/24 04:00 Temperature 97.6 F 97.6 F Pulse Rate 58 L 54 L Respiratory Rate 12 Blood Pressure 125/80 109/78 Pulse Oximetry 98 97 Oxygen Flow Rate 0 0 Oxygen Delivery Method Room Air Oxygen Flow Rate 0 Objective Labs 11/30/24 15:49 12/03/24 07:05 Labs: Laboratory Results - last 24 hr 12/03/24 07:05 Sodium 140 Potassium 4.0 Chloride 106 Carbon Dioxide 29 BUN 29 H Creatinine 0.90 Estimated GFR > 60 BUN/Creatinine Ratio 32.2 H Glucose 95 Calcium 9.4 Magnesium 2.1 NT-Pro-B Natriuret Pep 72 PFSH Medical History (Updated 11/30/24 @ 19:47 by Mitzi Hernandez DO) Hypertension Morbid obesity with BMI of 40.0-44.9, adult Obstructive sleep apnea of adult Primary insomnia Snoring Social History marital status: household members: spouse 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 history: 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 Diet/Activity/Treatments Diet: Nothing by Mouth Discharge Data Primary Care Provider: Sumanth Pham VTE Deep Vein Thrombosis/Pulmonary Embolism Present on Admission: No
[2024-12-04] MEDS: MAGNESIUM OXIDE 400 MG TABLET PO (09:13)
[2024-12-04] MEDS: AMLODIPINE 5 MG TABLET PO (09:13)
[2024-12-04] MEDS: MULTIVITAMIN 1 TABLET 1 TAB PO (09:13)
[2024-12-04] MEDS: LOSARTAN 50 MG TABLET PO ×2 (09:13→20:52)
[2024-12-04] MEDS: CHOLECALCIFEROL (VITAMIN D3) 1,000 UNIT TABLET 2000 UNIT PO (09:13)
[2024-12-04] MEDS: ASPIRIN EC 81 MG TABLET PO (09:13)
[2024-12-04] MEDS: SODIUM CHLORIDE 0.9% FLUSH 10 ML IV ×2 (09:14→21:00)
--- NOTE | 2024-12-04 18:30 | PM.PN.1 ---
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 He has no chest pain or shortness of breath. He indicates that 1 of his symptoms is that he has lost exercise tolerance and is no longer able to walk very far without becoming increasingly short of breath. Exam Vital Signs (past 8 hours): - 12/04/24 12:00 12/04/24 18:04 Temperature 97.4 F L 97.4 F L Pulse Rate 57 L 67 Respiratory Rate 19 20 Blood Pressure 134/89 115/80 Pulse Oximetry 98 97 Oxygen Flow Rate 0 0 Oxygen Delivery Method Room Air Oxygen Flow Rate 0 Narrative Exam Narrative: Alert and oriented x3. No apparent distress. 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 Rule out ACS. -Initially diuresed with Lasix. Stopped Lasix on 12/03/24 -Telemetry monitoring -see plan discussed below. Echocardiogram report: The ejection fraction is estimated to be 50-55%. Septal motion is consistent with post-operative state. There is mild mitral regurgitation. The calculated aortic valve area is 1.2 cm2 -2 day protocol Cardiac stress test is abnormal with prior inferior wall infarct suggesting RCA lesions. Hyperlipidemia. Lipitor and check lipids. CAD. Aspirin and Atorvastatin. Nitroglycerin as needed. Hypertension. Amlodipine and losartan. Hydralazine as needed. Insomnia. Trazodone nightly as needed Hospital Course: He was admitted with 3 days of chest pressure and shortness of breath. His troponin was 0.046 and then down to 0.036. The BNP was mildly elevated. The echocardiogram was notable for mild mitral regurgitation and normal ejection fraction/left ventricular function. The chest x-ray was normal. The two day cardiac scan was read as grossly abnormal with evidence of prior infarct in the inferior wall area consistent with prior right coronary artery obstruction. This probably goes back to when he had his CABG done although he emphatically insists that he has never had a heart attack, does not have heart problems and only had ?blockages to the arteries around his heart. Dr. Mondragon has commended transfer for Cardiology evaluation and potential repeat heart catheterization due to the elevated troponin, the type of symptoms bringing him to the hospital and the history of coronary disease along with the current scan report. His cardiology treatment has all been in [place] so he will be referred there. No beds have been available for 2 days so he is likely to go up there tomorrow. Despite clearing of symptoms the strong rec. from cardiology is to send him for further evaluation instead of allowing him to go home and do the next evaluation/testing at a later date. This was discussed with Dr. Varghese on Thursday evening 12/04/24. The transfer center is suggesting that it may be 2 more days before they have room for him. Time-Based Coding :: [TOTAL MINUTES] spent with patient and on the chart (including review of chart, obtaining history, exam, reviewing outside data, placing orders, documenting exam and treatment plan, and counseling patient) on [DATE]. Quality VTE Deep Vein Thrombosis/Pulmonary Embolism Present on Admission: No
[2024-12-04] MEDS: TRAZODONE 50 MG TABLET PO (20:53)
[2024-12-04] MEDS: ATORVASTATIN 20 MG TABLET 80 MG PO (20:53)
[2024-12-05] VITALS (7 sets, daily range): BP systolic 112–135; BP diastolic 67–87; PULSE 54–63; RESP 12–20; TEMP 36.3–36.6; O2SAT 94–98
--- NOTE | 2024-12-05 07:28 | P.DS_ITS ---
History of Present Illness History of Present Illness Date Patient Seen: 12/05/24 Chief complaint: chest pain, hx of bypass Narrative: 69 years old male with history of coronary artery disease, CABG in 2022, hypertension, hyperlipidemia, brief atrial fibrillation after CABG, obstructive sleep apnea on CPAP, presented to the ER with increased shortness of breath, chest tightness and feet swelling in the last 3 days. Symptoms started around September and were progressively getting worse. He had cold and sinus infection 3 days ago and his symptoms got worse. He also gained around 20 pounds since June 2023. Compliant with his home medications. Denies any PND, orthopnea, fever, cough, palpitations, nausea, vomiting, abdominal pain, diarrhea or dysuria. Follow-up with cardiology. Last seen 1 week ago and there was not any change of his medications in the last several months. He is not on any diuretics. Scheduled to have abdominal ultrasound on Thursday for aortic aneurysm screening. In the ER he was given Tylenol, amlodipine 5 mg, aspirin 325 mg and losartan 50 mg p.o. cardiology was consulted and recommended admitting for echo, stress test to rule out ACS. Discharge Providers Provider Date of admission: 11/30/24 19:45 Primary care physician: Sumanth Pham MD Consults: 11/30/24 19:52 Consult to Physical Therapy Evaluate & Treat Comment: Physician Instructions: Evaluate and Treat Discharge provider: Josie Velazco MD Summary Hospital Course Discharge Diagnosis: Acute diastolic heart failure. Rule out ACS. -Initially diuresed with Lasix. Stopped Lasix on 12/03/24 -Telemetry monitoring -see plan discussed below. Echocardiogram report: The ejection fraction is estimated to be 50-55%. Septal motion is consistent with post-operative state. There is mild mitral regurgitation. The calculated aortic valve area is 1.2 cm2 -2 day protocol Cardiac stress test is abnormal with prior inferior wall infarct suggesting RCA lesions. Hyperlipidemia. Lipitor and check lipids. CAD. Aspirin and Atorvastatin. Nitroglycerin as needed. Hypertension. Amlodipine and losartan. Hydralazine as needed. Insomnia. Trazodone nightly as needed Hospital Course: He was admitted with 3 days of chest pressure and shortness of breath. His troponin was 0.046 and then down to 0.036. The BNP was mildly elevated. The echocardiogram was notable for mild mitral regurgitation and normal ejection fraction/left ventricular function. The chest x-ray was normal. The two day cardiac scan was read as grossly abnormal with evidence of prior infarct in the inferior wall area consistent with prior right coronary artery obstruction. This probably goes back to when he had his CABG done although he emphatically insists that he has never had a heart attack, does not have heart problems and only had ?blockages to the arteries around his heart. Dr. Mondragon has commended transfer for Cardiology evaluation and potential repeat heart catheterization due to the elevated troponin, the type of symptoms bringing him to the hospital and the history of coronary disease along with the current scan report. His cardiology treatment has all been in [place] so he will be referred there. No beds have been available for 2 days so he is likely to go up there tomorrow. Despite clearing of symptoms the strong rec. from cardiology is to send him for further evaluation instead of allowing him to go home and do the next evaluation/testing at a later date. This was discussed with Dr. Varghese on Thursday evening 12/04/24. The transfer center is suggesting that it may be 2 more days before they have room for him. 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 Diet/Activity/Treatments Diet: Nothing by Mouth Discharge Data Primary Care Provider: Sumanth Pham VTE Deep Vein Thrombosis/Pulmonary Embolism Present on Admission: No
[2024-12-05] MEDS: MAGNESIUM OXIDE 400 MG TABLET PO (09:03)
[2024-12-05] MEDS: LOSARTAN 50 MG TABLET PO ×2 (09:03→20:51)
[2024-12-05] MEDS: CHOLECALCIFEROL (VITAMIN D3) 1,000 UNIT TABLET 2000 UNIT PO (09:03)
[2024-12-05] MEDS: ASPIRIN EC 81 MG TABLET PO (09:03)
[2024-12-05] MEDS: AMLODIPINE 5 MG TABLET PO (09:03)
[2024-12-05] MEDS: MULTIVITAMIN 1 TABLET 1 TAB PO (09:03)
--- NOTE | 2024-12-05 10:35 | CM.DPNOTE ---
DCP note [employer] OPERATOR reviewed EMR. Per cardiac catheterization technician, still attempting transfer to [facility] in [facility], 24-48 hrs before bed availability. Per provider in rounds, food checker support still does not want pt to dc home with OP follow up and continues to rec transfer. P: anticipate transfer when bed available to [facility] in [facility]. CM team will continue to follow as needed KASSIDY Brody
--- NOTE | 2024-12-05 10:38 | DIET.CONS ---
Dietary Consultation Note Admission Date: 11/30/2024 19:45 Assessment: 69 y M presenting with chest pain, had abnormal cardiac stress test, currently awaiting transfer for further cardiology eval. RD screened for LOS. EMR reviewed. Pt with 100% recorded PO intakes. DFM reviewed for meal composition. No nutrition interventions needed at this time. Ht: 182.88 cm Wt: 129 kg BMI: 38.8 UBW: 133.356 kg on 12/15/21 Last BM: 12/02/24 (12/02/24 06:00) MNA: 14 Emeterio Score: 23 Diet: 12/03/24 Lunch Heart Healthy Diet Diet Modifications: Sodium Level: 2 gm Sodium Food Texture: Level 7 - Regular Liquid Consistency: Level 0 - Thin Nutrition Percent Meal Consumed 100% 12/04/24 18:03 Percent Meal Consumed 100% 12/03/24 17:04 Percent Meal Consumed 100% 12/03/24 12:22 Labs: RBC 5.27 X10^6/uL (4.5-5.9) 11/30/24 15:49 Hgb 15.9 g/dL (13.5-17.5) 11/30/24 15:49 Hct 47.7 % (41-53) 11/30/24 15:49 Creatinine 0.90 mg/dL (0.66-1.25) 12/03/24 07:05 NT-Pro-B Natriuret Pep 72 pg/mL (<125) 12/03/24 07:05 Electronically Signed by: Minerva Whitney 12/05/24 10:38 Clinical Dietitian [address] [id number]
[2024-12-05] MEDS: SODIUM CHLORIDE 0.9% FLUSH 10 ML IV ×2 (14:08→20:54)
--- NOTE | 2024-12-05 14:16 | P.PN_ITS ---
Subjective Subjective Interval history: He is seen today to follow-up his congestive heart failure and coronary disease. He continues chest pain-free and is not short of breath with minimal exertion that we have exercised him with here this week. He continues to wait for a bed to open up so he can undergo heart catheterization. We investigated alternative hospital stay and were told that the same over flowing capacity and wait for beds is present elsewhere. Exam Vital Signs (past 8 hours): - 12/05/24 08:00 12/05/24 12:00 Temperature 97.3 F L 97.3 F L Pulse Rate 59 L 63 Respiratory Rate 12 14 Blood Pressure 135/87 124/78 Pulse Oximetry 94 97 Oxygen Flow Rate 0 0 Oxygen Delivery Method CPAP Oxygen Flow Rate 0 Narrative Exam Narrative: Alert and oriented. No apparent distress. Heart is regular rate and rhythm without murmur Lungs are clear to auscultation bilaterally 1+ bilateral pitting ankle edema. 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 Rule out ACS. -Initially diuresed with Lasix. Resumed Lasix on 12/05 due to reaccumulating ankle edema. -Telemetry monitoring -request Cardiology to insert a formal NM cardiac stress test report into the record. -see plan discussed below. Echocardiogram report: The ejection fraction is estimated to be 50-55%. Septal motion is consistent with post-operative state. There is mild mitral regurgitation. The calculated aortic valve area is 1.2 cm2 -2 day protocol Cardiac stress test is abnormal with prior inferior wall infarct suggesting RCA lesions. Hyperlipidemia. Lipitor and check lipids. CAD. Aspirin and Atorvastatin. Nitroglycerin as needed. Hypertension. Amlodipine and losartan. Hydralazine as needed. Insomnia. Trazodone nightly as needed Hospital Course: He was admitted with 3 days of chest pressure and shortness of breath. His troponin was 0.046 and then down to 0.036. The BNP was mildly elevated. The echocardiogram was notable for mild mitral regurgitation and normal ejection fraction/left ventricular function. The chest x-ray was normal. The two day cardiac scan was read as grossly abnormal with evidence of prior infarct in the inferior wall area consistent with prior right coronary artery obstruction. This probably goes back to when he had his CABG done although he emphatically insists that he has never had a heart attack, does not have heart problems and only had ?blockages to the arteries around his heart. Dr. Mondragon has commended transfer for Cardiology evaluation and potential repeat heart catheterization due to the elevated troponin, the type of symptoms bringing him to the hospital and the history of coronary disease along with the current scan report. His cardiology treatment has all been in [place] so he will be referred there. No beds have been available for 3 days so he is likely to go up there tomorrow. Despite clearing of symptoms the strong rec. from cardiology is to send him for further evaluation instead of allowing him to go home and do the next evaluation/testing at a later date. This was discussed with Dr. Varghese on Thursday evening 12/04/24. She agreed with the plan. The transfer center is suggesting that it may be another day before they have room for him. Time-Based Coding :: [TOTAL MINUTES] spent with patient and on the chart (including review of chart, obtaining history, exam, reviewing outside data, placing orders, documenting exam and treatment plan, and counseling patient) on [DATE]. Quality VTE Deep Vein Thrombosis/Pulmonary Embolism Present on Admission: No
[2024-12-05] MEDS: FUROSEMIDE 40 MG TABLET PO (14:59)
[2024-12-05] MEDS: ATORVASTATIN 20 MG TABLET 80 MG PO (20:51)
[2024-12-05] MEDS: TRAZODONE 50 MG TABLET PO (20:55)
[2024-12-06] VITALS (9 sets, daily range): BP systolic 105–136; BP diastolic 70–86; PULSE 45–66; RESP 15–22; TEMP 36.2–36.7; O2SAT 96–100
[2024-12-06] MEDS: CHOLECALCIFEROL (VITAMIN D3) 1,000 UNIT TABLET 2000 UNIT PO (08:24)
[2024-12-06] MEDS: AMLODIPINE 5 MG TABLET PO (08:24)
[2024-12-06] MEDS: MULTIVITAMIN 1 TABLET 1 TAB PO (08:24)
[2024-12-06] MEDS: ASPIRIN EC 81 MG TABLET PO (08:24)
[2024-12-06] MEDS: MAGNESIUM OXIDE 400 MG TABLET PO (08:25)
[2024-12-06] MEDS: LOSARTAN 50 MG TABLET PO ×2 (08:25→20:57)
--- NOTE | 2024-12-06 09:47 | PC.NURSE ---
Addendum entered by Nicole Farias R.N. 12/06/24 11:41: 1130 Report given to oncoming RN. Plan of care discussed. Original Note: 729 Report received from nightshift RN. Patient AAO x's 3. Able to GARCIA. Denies pain, numbness and tingling. Call light within reach and bed in lowest position. Patient sitting in chair. No complaints at this time. 09 Patient ambulating tomlin, no complaints at this time.
[2024-12-06] MEDS: SODIUM CHLORIDE 0.9% FLUSH 10 ML IV ×2 (09:55→20:58)
--- NOTE | 2024-12-06 12:09 | PC.NURSE ---
Follow up with charge nurse regarding status of shaffer. to [facility]. As of 1029 call placed by charge nurse, there is still no beds avail. Charge nurse states they will f/u again around 1530 today. Patient has been updated by this nurse.
--- NOTE | 2024-12-06 12:44 | PM.PN.1 ---
Subjective Subjective Date Patient Seen: 12/06/24 Time Patient Seen: 12:44 Interval history: He is seen today to follow-up his severe coronary artery disease. He continues to wait for an inpatient bed so Cardiology can potentially do a heart catheterization on him in [place]. This happens to be a very busy week across the community and other hospitals that we contacted were also experiencing delays in accepting patient transfers. His edema has resolved today. Exam Vital Signs (past 8 hours): - 12/06/24 07:00 12/06/24 07:59 12/06/24 08:24 Temperature 97.1 F L Pulse Rate 54 L 55 L Respiratory Rate 18 Blood Pressure 121/86 125/84 Pulse Oximetry 99 Oxygen Delivery Method Room Air Oxygen Flow Rate 0 12/06/24 08:25 Temperature Pulse Rate 54 L Respiratory Rate Blood Pressure 125/84 Pulse Oximetry Oxygen Delivery Method Oxygen Flow Rate Oxygen Delivery Method Room Air Oxygen Flow Rate 0 Narrative Exam Narrative: Alert and oriented x3. No apparent distress. Heart is regular rate and rhythm without murmur Lungs are clear to auscultation bilaterally Extremities have no ankle edema today. 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 Rule out ACS. -Initially diuresed with Lasix. Resumed Lasix on 12/05 due to reaccumulating ankle edema. -Telemetry monitoring -request Cardiology to insert a formal NM cardiac stress test report into the record. -see plan discussed below. Echocardiogram report: The ejection fraction is estimated to be 50-55%. Septal motion is consistent with post-operative state. There is mild mitral regurgitation. The calculated aortic valve area is 1.2 cm2 -2 day protocol Cardiac stress test is abnormal with prior inferior wall infarct suggesting RCA lesions. Hyperlipidemia. Lipitor. CAD. Aspirin and Atorvastatin. Nitroglycerin as needed. Hypertension. Amlodipine and losartan. Hydralazine as needed. Insomnia. Trazodone nightly as needed Hospital Course: He was admitted with 3 days of chest pressure and shortness of breath. His troponin was 0.046 and then down to 0.036. The BNP was mildly elevated. The echocardiogram was notable for mild mitral regurgitation and normal ejection fraction/left ventricular function. The chest x-ray was normal. The two day cardiac scan was read as grossly abnormal with evidence of prior infarct in the inferior wall area consistent with prior right coronary artery obstruction. This probably goes back to when he had his CABG done although he emphatically insists that he has never had a heart attack, does not have heart problems and only had ?blockages to the arteries around his heart. Dr. Mondragon has commended transfer for Cardiology evaluation and potential repeat heart catheterization due to the elevated troponin, the type of symptoms bringing him to the hospital and the history of coronary disease along with the current scan report. His cardiology treatment has all been in [place] so he will be referred there. No beds have been available for 4 days so he is likely to go up there tomorrow. Despite clearing of symptoms the strong rec. from cardiology is to send him for further evaluation instead of allowing him to go home and do the next evaluation/testing at a later date. This was discussed with Dr. Varghese on Thursday evening 12/04/24. She agreed with the plan. The transfer center is suggesting that it may be another day before they have room for him. Time-Based Coding :: [TOTAL MINUTES] spent with patient and on the chart (including review of chart, obtaining history, exam, reviewing outside data, placing orders, documenting exam and treatment plan, and counseling patient) on [DATE]. Quality VTE Deep Vein Thrombosis/Pulmonary Embolism Present on Admission: No
[2024-12-06] MEDS: CLOPIDOGREL 75 MG TABLET PO (13:18)
[2024-12-06] MEDS: TRAZODONE 50 MG TABLET PO (20:57)
[2024-12-06] MEDS: ATORVASTATIN 20 MG TABLET 80 MG PO (20:57)
[2024-12-07] VITALS: BP 107/62; PULSE 44; RESP 18; TEMP 36.1; O2SAT 97
[2024-12-07 05:00] VITALS: BP 113/89; PULSE 63; RESP 18; TEMP 36.1; O2SAT 98
--- NOTE | 2024-12-07 07:34 | P.PN_ITS ---
Subjective Subjective Date Patient Seen: 12/07/24 Exam Vital Signs (past 8 hours): - 12/07/24 00:00 12/07/24 05:00 Temperature 97 F L 97 F L Pulse Rate 44 L 63 Respiratory Rate 18 18 Blood Pressure 107/62 113/89 Pulse Oximetry 97 98 Oxygen Flow Rate 0 0 Oxygen Delivery Method Room Air Oxygen Flow Rate 0 Objective Labs 11/30/24 15:49 12/03/24 07:05 [facility] Medical History (Updated 11/30/24 @ 19:47 by Mitzi Hernandez DO) Hypertension Morbid obesity with BMI of 40.0-44.9, adult Obstructive sleep apnea of adult Primary insomnia Snoring Social History marital status: household members: spouse 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 Rule out ACS. -Initially diuresed with Lasix. Resumed Lasix on 12/05 due to reaccumulating ankle edema. -Telemetry monitoring -request Cardiology to insert a formal NM cardiac stress test report into the record. -see plan discussed below. Echocardiogram report: The ejection fraction is estimated to be 50-55%. Septal motion is consistent with post-operative state. There is mild mitral regurgitation. The calculated aortic valve area is 1.2 cm2 -2 day protocol Cardiac stress test is abnormal with prior inferior wall infarct suggesting RCA lesions. Hyperlipidemia. Lipitor. CAD. Aspirin and Atorvastatin. Nitroglycerin as needed. Hypertension. Amlodipine and losartan. Hydralazine as needed. Insomnia. Trazodone nightly as needed Hospital Course: He was admitted with 3 days of chest pressure and shortness of breath. His troponin was 0.046 and then down to 0.036. The BNP was mildly elevated. The echocardiogram was notable for mild mitral regurgitation and normal ejection fraction/left ventricular function. The chest x-ray was normal. The two day cardiac scan was read as grossly abnormal with evidence of prior infarct in the inferior wall area consistent with prior right coronary artery obstruction. This probably goes back to when he had his CABG done although he emphatically insists that he has never had a heart attack, does not have heart problems and only had ?blockages to the arteries around his heart. Dr. Mondragon has commended transfer for Cardiology evaluation and potential repeat heart catheterization due to the elevated troponin, the type of symptoms bringing him to the hospital and the history of coronary disease along with the current scan report. His cardiology treatment has all been in [place] so he will be referred there. No beds have been available for 4 days so he is likely to go up there tomorrow. Despite clearing of symptoms the strong rec. from cardiology is to send him for further evaluation instead of allowing him to go home and do the next evaluation/testing at a later date. This was discussed with Dr. Varghese on Thursday evening 12/04/24. She agreed with the plan. The transfer center is suggesting that it may be another day before they have room for him. Time-Based Coding :: [TOTAL MINUTES] spent with patient and on the chart (including review of chart, obtaining history, exam, reviewing outside data, placing orders, documenting exam and treatment plan, and counseling patient) on [DATE]. Quality VTE Deep Vein Thrombosis/Pulmonary Embolism Present on Admission: No
[2024-12-07 08:00] VITALS: BP 129/80; PULSE 49; RESP 16; TEMP 36.2; O2SAT 97
[2024-12-07] MEDS: MULTIVITAMIN 1 TABLET 1 TAB PO (09:13)
[2024-12-07] MEDS: CHOLECALCIFEROL (VITAMIN D3) 1,000 UNIT TABLET 2000 UNIT PO (09:13)
[2024-12-07] MEDS: LOSARTAN 50 MG TABLET PO (09:13)
[2024-12-07] MEDS: ASPIRIN EC 81 MG TABLET PO (09:13)
[2024-12-07] MEDS: CLOPIDOGREL 75 MG TABLET PO (09:13)
[2024-12-07] MEDS: AMLODIPINE 5 MG TABLET PO (09:13)
[2024-12-07] MEDS: MAGNESIUM OXIDE 400 MG TABLET PO (09:13)
[2024-12-07] MEDS: SODIUM CHLORIDE 0.9% FLUSH 10 ML IV (09:14)
[2024-12-07 12:00] VITALS: BP 137/74; PULSE 60; RESP 17; TEMP 36.3; O2SAT 99
[2024-12-07 16:00] VITALS: BP 119/77; PULSE 60; RESP 16; TEMP 36.8; O2SAT 96
--- NOTE | 2024-12-07 16:29 | PM.DS.1 ---
History of Present Illness History of Present Illness Date Patient Seen: 12/07/24 Time Patient Seen: 16:29 Chief complaint: chest pain, hx of bypass Narrative: 69 years old male with history of coronary artery disease, CABG in 2022, hypertension, hyperlipidemia, brief atrial fibrillation after CABG, obstructive sleep apnea on CPAP, presented to the ER with increased shortness of breath, chest tightness and feet swelling in the last 3 days. Symptoms started around September and were progressively getting worse. He had cold and sinus infection 3 days ago and his symptoms got worse. He also gained around 20 pounds since June 2023. Compliant with his home medications. Denies any PND, orthopnea, fever, cough, palpitations, nausea, vomiting, abdominal pain, diarrhea or dysuria. Follow-up with cardiology. Last seen 1 week ago and there was not any change of his medications in the last several months. He is not on any diuretics. Scheduled to have abdominal ultrasound on Thursday for aortic aneurysm screening. In the ER he was given Tylenol, amlodipine 5 mg, aspirin 325 mg and losartan 50 mg p.o. cardiology was consulted and recommended admitting for echo, stress test to rule out ACS. Discharge Providers Provider Date of admission: 11/30/24 19:45 Discharge Date: 12/07/24 Primary care physician: Sumanth Pham MD Consults: 11/30/24 19:52 Consult to Physical Therapy Evaluate & Treat Comment: Physician Instructions: Evaluate and Treat Discharge provider: Josie Velazco MD Summary Hospital Course Discharge Diagnosis: Acute diastolic heart failure. Rule out ACS. -Initially diuresed with Lasix. Resumed Lasix on 12/05 due to reaccumulating ankle edema. -Telemetry monitoring -requested the [place] department to insert a formal [place] cardiac stress test report into the record. Discussed with Dr. Mondragon today. -see plan discussed below. Echocardiogram report: The ejection fraction is estimated to be 50-55%. Septal motion is consistent with post-operative state. There is mild mitral regurgitation. The calculated aortic valve area is 1.2 cm2 -2 day protocol Cardiac stress test is abnormal with prior inferior wall infarct suggesting RCA lesions. Hyperlipidemia. Lipitor. CAD. Aspirin and Atorvastatin. Nitroglycerin as needed. Hypertension. Amlodipine and losartan. Hydralazine as needed. Insomnia. Trazodone nightly as needed Hospital Course: He came in with 3 days of intermittent chest discomfort and 1 month of progressively worsening dyspnea with exertion. His troponin peaked at 0.046. The BNP was mildly elevated. He had some mild edema so was treated with Lasix successfully. The echocardiogram showed mild mitral regurgitation with a normal ejection fraction and left ventricular function. The chest x-ray was normal. The 2 day cardiac scan was read as grossly abnormal with evidence of prior infarct in the inferior wall area consistent with prior right coronary artery obstruction. This probably goes back to when he had a CABG done although he emphatically insists that he has never had a heart attack, does not have heart problems and only had ?blockages to the arteries around his heart.? Cardiology recommended transfer to a hospital that can provide him with a precautionary heart catheterization and so he has been waiting for that to occur. His cardiology treatment has all been in [place] so they were contacted and for several days told us that they anticipated he would be going in a day or 2. After 5 days of those conversations he was agreeable to transfer elsewhere and [facility] has accepted him. There was a technical problem with the nuclear medicine scan report so it has not made it in the chart yet but hopefully will be able to be printed and sent with him. He has had no recurrence of symptoms and has been walking the hallways quite vigorously. Status at Discharge Cognitive/behavioral status at discharge: at baseline, oriented Functional status at discharge: independent ambulation Overall status at discharge: patient is back to baseline Time Spent with Patient Time spent: Greater than 30 minutes Exam Vital Signs (past 8 hours): - 12/07/24 12:00 Temperature 97.4 F L Pulse Rate 60 Respiratory Rate 17 Blood Pressure 137/74 Pulse Oximetry 99 Oxygen Flow Rate 0 Oxygen Delivery Method Room Air Oxygen Flow Rate 0 Narrative Exam Narrative: Alert and oriented x3. No apparent distress Heart is regular rate and rhythm without murmur Lungs are clear to auscultation bilaterally There is no ankle edema today. 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 Diet/Activity/Treatments Diet: Low-cholesterol Liquid consistency: Normal/Thin Food texture: Regular Discharge Data Primary Care Provider: Sumanth Pham VTE Deep Vein Thrombosis/Pulmonary Embolism Present on Admission: No
--- NOTE | 2024-12-07 18:52 | PC.NURSE ---
Day shift: Left unit at approx 1852. Has all belongings. Going to via ALS transport. Report given to transport team and all questions answered.
--- NOTE | 2024-12-07 19:03 | DI.NM.S_ITS ---
DATE OF SERVICE: PROCEDURE: Pharmacological perfusion study. INDICATIONS: Known history of bypass surgery in 2022, hypertension, hyperlipidemia, paroxysmal AFib, sleep apnea with symptoms of shortness of breath, chest stiffness, heart failure symptoms, progressively worsening lower extremity swelling. RADIOPHARMACEUTICAL: 27.5 mCi technetium-99m Myoview IV was injected at stress and 24.0 mCi technetium-99m Myoview IV was injected at rest. CARDIAC STRESS: The patient underwent pharmacological perfusion study under the supervision of an attending staff as per standard protocol. 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 After Lexiscan injection, no obvious ischemic changes. PVCs got suppressed. No chest pain. He had minimal dyspnea during stress. The patient remained hemodynamically stable. Resting blood pressure 130/92. RAW DATA: There is increased subdiaphragmatic activity. The patient's weight is 300 pounds. Stress LV ejection fraction reported to be 57% and there is inferior wall hypokinesis. Dilated LV with resting end- diastolic volume 203 mL. TID ratio 1.07, which is within normal limits. Lung/heart ratio 0.56, which is abnormal. MYOCARDIAL PERFUSION SCAN: Stress supine, resting supine, and stress prone images were compared to each other. There appears to be predominantly fixed, large size, moderate to severely decreased perfusion of inferior wall extending into the inferoapex, distal inferolateral wall, distal inferoseptum without any significant reversibility. There is a mild reversibility only in distal inferoseptum defect. Summed stress score 18 and summed rest score 16. CONCLUSION: This is an abnormal myocardial perfusion consistent with large size, [id number] infarction of inferior wall extending into the inferoapex, basal inferolateral wall, and distal inferoseptum with partial reversibility of small size in distal inferoseptum only. Those defects did not improve during stress prone images. Abnormal lung/heart ratio of 0.56 is suggestive of elevated LV filling pressure. 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 No anginal symptoms during Lexiscan. LV function on this test is not revival. Please get 2D echo. Overall, high-risk study. Discussed with hospitalist, Dr. Velazco. We will recommend transferring patient to facility where he can have left heart catheterization. Sumanth De La Rosa - CAITLYN/emeka/STEPHON doc#: [id number]/job#: [id number] dd: 12/02/2024 12:56:00 dt: 12/02/2024 13:09:00 DICTATING MD/COPIES TO: Edison Mondragon MD COPIES MNE: JUAN DANIEL;
== END 2024-12-07 18:53 | disposition short-term general hospital (02) | DRG 291 ==
LOC: ED 19:00 → AC 19:47
PROVIDERS: Emergency Medicine; Family Medicine; Admitting Provider Internal Medicine; Emergency Provider Emergency Medicine; Family Provider Family Medicine; PCP Family Medicine; Referring Provider Emergency Medicine; Visit Provider Internal Medicine
DX: I11.0 Hypertensive heart disease with heart failure (principal); I50.31 Acute diastolic (congestive) heart failure; I73.9 Peripheral vascular disease, unspecified; I25.10 Atherosclerotic heart disease of native coronary artery without angina pectoris; G47.33 Obstructive sleep apnea (adult) (pediatric); E78.5 Hyperlipidemia, unspecified; I49.3 Ventricular premature depolarization; G47.00 Insomnia, unspecified; I45.10 Unspecified right bundle-branch block; I34.0 Nonrheumatic mitral (valve) insufficiency; R79.89 Other specified abnormal findings of blood chemistry; Z95.1 Presence of aortocoronary bypass graft
CPT/HCPCS: 36415; 71045; 76770; 78452; 80048; 80053; 80061; 81001; 82550; 83690; 83735; 83880; 84443; 84484; 85025; 85610; 85730; 93005; 93017; 97161; 99283; 99284; A9502; C8929; J1940; J2785; Q9957